=== PATIENT | male | born 1940 | race Caucasian/White ===

== ENCOUNTER → 2017-11-24 13:26 | Outpatient (CLI) | payer MEDICARE, OTHER, SELFPAY ==
[2017-02-24 16:07] VITALS: BMI 22.6
[2017-11-24 15:33] LABS: Anion Gap 7 (5-15); BUN 48 mg/dL (7-18); BUN/Creat Ratio 26.1 RATIO (10-20); Calcium,Total 8.5 mg/dL (8.5-10.1); Chloride 106 mmol/L (98-107); Creatinine, Serum 1.84 mg/dL (0.70-1.30); EST Glomerular Filtration Rate 38 mL/min (>60); Est Glom Filt Rate - Afr Amer 46 mL/min (>60); Glucose 89 mg/dL (74-106); Potassium 5.2 mmol/L (3.5-5.1); Sodium Level 139 mmol/L (136-145)
== END ==
PROVIDERS: Visit Provider Internal Medicine Cardiovascular Disease
DX: I16.1 Hypertensive emergency (principal); I50.9 Heart failure, unspecified; R79.89 Other specified abnormal findings of blood chemistry
CPT/HCPCS: 36415; 80048

== ENCOUNTER → 2017-12-30 11:22 | Outpatient (CLI) | payer MEDICARE, OTHER, SELFPAY ==
[2017-02-24 16:07] VITALS: BMI 22.6
[2017-12-30 12:05] LABS: Anion Gap 9 (5-15); BUN 38 mg/dL (7-18); BUN/Creat Ratio 20.4 RATIO (10-20); Calcium,Total 8.4 mg/dL (8.5-10.1); Chloride 106 mmol/L (98-107); Creatinine, Serum 1.86 mg/dL (0.70-1.30); EST Glomerular Filtration Rate 38 mL/min (>60); Est Glom Filt Rate - Afr Amer 46 mL/min (>60); Glucose 91 mg/dL (74-106); Sodium Level 141 mmol/L (136-145)
== END ==
PROVIDERS: Visit Provider Physician Assistant Medical
DX: I50.22 Chronic systolic (congestive) heart failure (principal); R79.89 Other specified abnormal findings of blood chemistry
CPT/HCPCS: 36415; 80048

== ENCOUNTER → 2018-01-27 10:45 | Outpatient (CLI) | payer MEDICARE, OTHER, SELFPAY ==
[2017-02-24 16:07] VITALS: BMI 22.6
[2018-01-27 11:58] LABS: Anion Gap 7 (5-15); BUN 35 mg/dL (7-18); Calcium,Total 8.3 mg/dL (8.5-10.1); Chloride 108 mmol/L (98-107); Creatinine, Serum 1.59 mg/dL (0.70-1.30); EST Glomerular Filtration Rate 45 mL/min (>60); Est Glom Filt Rate - Afr Amer 55 mL/min (>60); Glucose 93 mg/dL (74-106); Potassium 4.9 mmol/L (3.5-5.1); Sodium Level 141 mmol/L (136-145)
== END ==
PROVIDERS: Physician Assistant Medical; Visit Provider Internal Medicine Cardiovascular Disease
DX: I50.22 Chronic systolic (congestive) heart failure (principal)
CPT/HCPCS: 36415; 80048

== ENCOUNTER → 2018-04-18 10:38 | Outpatient (CLI) | payer MEDICARE, OTHER, SELFPAY ==
[2017-02-24 16:07] VITALS: BMI 22.6
[2018-04-18 11:21] LABS: AST(SGOT) 19 U/L (15-37); Alanine Aminotransfer ALT/SGPT 19 U/L (16-61); Albumin, Serum 3.3 g/dL (3.2-5.0); Alkaline Phosphatase 79 U/L (45-117); Cholesterol 130 mg/dL (200); Globulin 3.6 g/dL (2.2-4.2); High Density Lipoprotein 45 mg/dL; Protein, Total 6.9 g/dL (6.4-8.2); Triglycerides 54 mg/dL; Very Low Density Lipoprotein 11 mg/dL (5-40)
== END ==
PROVIDERS: Visit Provider Physician Assistant Medical
DX: I10 Essential (primary) hypertension (principal); E78.5 Hyperlipidemia, unspecified
CPT/HCPCS: 36415; 80061; 80076

== ENCOUNTER → 2018-07-12 13:27 | Outpatient (CLI) | payer MEDICARE, OTHER, SELFPAY ==
[2017-02-24 16:07] VITALS: BMI 22.6
--- NOTE | 2018-07-12 13:46 | ECHOD_ITS ---
Reason For Study: CAD/ASHD Procedure This was a 2D Doppler, Color Flow transthoracic echocardiogram. The exam was of adequate technical quality. Exam performed in department. Left Ventricle Normal LV size. Mid cavitary false tendon noted. Mild segmental systolic dysfunction (see wall motion). The estimated ejection fraction is 45 %. There is evidence of diastolic dysfunction. Mid- Anterior : Hypokinetic. Mid-Lateral : Hypokinetic. Mid-Posterior: Hypokinetic. Anterior [place] : Hypokinetic. Lateral [place] : Hypokinetic. Right Ventricle Normal RV size. Normal systolic function. Atria The left atrium is mildly enlarged. Normal right atrium. Lipomatous hypertrophy of the atrial septum. No doppler evidence for ASD. Positive agitated saline contrast study for a right to left interatrial shunt c/w a small PFO vs. ASD. Mitral Valve There is no mitral annular calcification. Mild diffuse mitral valve thickening. Mild-Moderate (1- 2+) mitral valve insufficiency. Tricuspid Valve Normal tricuspid valve. Mild tricuspid valve insufficiency. Right ventricular systolic pressure estimated to be 39 mmHg. Aortic Valve Trisinus/trileaflet aortic valve. Mild diffuse aortic valve thickening. Mild diffuse aortic valve calcification. Aortic valve sclerosis / mild aortic valve stenosis. Trivial aortic valve insufficiency. Pulmonic Valve The pulmonic valve is not well visualized. Trivial pulmonic valve insufficiency. Great Vessels Normal sized aortic root. Pericardium/Pleural No pericardial effusion. Medication 22 gauge I.V. with prn adaptor inserted into right arm. Performed a rapid injection of agitated mix of 9 cc saline and 1cc air to assess for atrial septal defect. MMode/2D Measurements & Calculations LVIDd: 4.8 cm IVSd: 1.0 cm LVOT diam: 2.2 cm LVIDs: 3.4 cm LVPWd: 0.97 cm LVOT area: 3.8 cm2 RVDd: 3.5 cm FS: 30.3 % Ao root diam: 3.0 cm LAV(MOD-bp): 63.9 ml LVAd ap4: 43.2 cm2 LA dimension: 3.7 cm LAV(MOD-bp) Indexed: 33.2 ml/m2 EDV(MOD-sp4): 173.9 ml LAV(MOD-sp2): 65.5 ml EDV(sp4-el): 177.2 ml LAV(MOD-sp4): 56.5 ml LVAs ap4: 28.8 cm2 ESV(MOD-sp4): 90.4 ml ESV(sp4-el): 92.2 ml EF(MOD-sp4): 48.0 % EF(sp4-el): 48.0 % SV(MOD-sp4): 83.4 ml SV(sp4-el): 85.0 ml LA A4 area: 21.1 cm2 RA A4 area: 18.6 cm2 Time Measurements MV dec time: 0.26 sec Doppler Measurements & Calculations MV E max arnold: 56.7 cm/sec Lat Peak E' Arnold: 9.8 cm/sec Med Peak E' Arnold: 5.8 cm/sec MV A max arnold: 81.3 cm/sec E/E' lat: 5.8 E/E' med: 9.9 MV E/A: 0.70 Ao V2 max: 192.4 cm/sec AI max arnold: 356.4 cm/sec LV V1 max: 105.3 cm/sec Ao max P.8 mmHg AI max P.8 mmHg LV V1 max P.4 mmHg Ao V2 mean: 138.9 cm/sec AI dec slope: 91.4 cm/sec2 LV V1 mean P.1 mmHg Ao mean P.6 mmHg AI P1/2t: 1142 msec LV V1 mean: 67.1 cm/sec Ao V2 VTI: 60.2 cm LV V1 VTI: 29.5 cm JACKIE(I,D): 1.9 cm2 JACKIE(V,D): 2.1 cm2 SV(LVOT): 112.4 ml PA V2 max: 78.6 cm/sec TR max arnold: 299.8 cm/sec TR max P.0 mmHg Interpretation Summary Mild segmental systolic dysfunction (see wall motion). The estimated ejection fraction is 45 %. Mid cavitary false tendon noted. The left atrium is mildly enlarged. Lipomatous hypertrophy of the atrial septum. Mild diffuse mitral valve thickening. Mild-Moderate (1-2+) mitral valve insufficiency. Mild tricuspid valve insufficiency. Aortic valve sclerosis / mild aortic valve stenosis. Trivial aortic valve insufficiency. Trivial pulmonic valve insufficiency. Right ventricular systolic pressure estimated to be 39 mmHg. There is evidence of diastolic dysfunction. Ordering Physician: Scot Coelho Referring Physician: Scot Coelho Performed By: Silke Caba, RDCS
[2018-07-12 14:45] LABS: Anion Gap 6 (5-15); BUN 33 mg/dL (7-18); BUN/Creat Ratio 23.2 RATIO (10-20); Calcium,Total 8.5 mg/dL (8.5-10.1); Chloride 107 mmol/L (98-107); Creatinine, Serum 1.42 mg/dL (0.70-1.30); EST Glomerular Filtration Rate 51 mL/min (>60); Est Glom Filt Rate - Afr Amer 62 mL/min (>60); Glucose 93 mg/dL (74-106); Potassium 4.9 mmol/L (3.5-5.1); Sodium Level 139 mmol/L (136-145)
== END ==
PROVIDERS: Physician Assistant Medical; Referring Provider Internal Medicine Cardiovascular Disease; Visit Provider Internal Medicine Cardiovascular Disease
DX: I25.10 Atherosclerotic heart disease of native coronary artery without angina pectoris (principal); I25.5 Ischemic cardiomyopathy; I50.22 Chronic systolic (congestive) heart failure; R79.89 Other specified abnormal findings of blood chemistry
CPT/HCPCS: 36415; 80048; 93306; A4216; J2405

== ENCOUNTER → 2019-03-23 11:09 | Outpatient (CLI) | payer MEDICARE, OTHER, SELFPAY ==
[2017-02-24 16:07] VITALS: BMI 22.6
[2018-12-22 16:14] VITALS: BMI 25.2
[2019-03-23 11:55] LABS: AST(SGOT) 19 U/L (15-37); Alanine Aminotransfer ALT/SGPT 17 U/L (16-61); Albumin, Serum 3.6 g/dL (3.2-5.0); Alkaline Phosphatase 73 U/L (45-117); Bilirubin, Direct 0.11 mg/dL (0.00-0.30); Cholesterol 156 mg/dL (200); Globulin 3.3 g/dL (2.2-4.2); High Density Lipoprotein 49 mg/dL; Protein, Total 6.9 g/dL (6.4-8.2); Triglycerides 77 mg/dL; Very Low Density Lipoprotein 15 mg/dL (5-40)
== END ==
PROVIDERS: Referring Provider Internal Medicine Cardiovascular Disease; Visit Provider Internal Medicine Cardiovascular Disease
DX: I25.10 Atherosclerotic heart disease of native coronary artery without angina pectoris (principal); E78.2 Mixed hyperlipidemia
CPT/HCPCS: 36415; 80061; 80076

== ENCOUNTER → 2021-03-17 09:38 | Outpatient (CLI) | payer MEDICARE, OTHER, SELFPAY ==
[2021-02-10 15:31] VITALS: BMI 22.6
[2021-03-10 08:43] VITALS: BMI 25.1
--- NOTE | 2021-03-17 09:55 | CDU_ITS ---
Version 2 Reason For Study: Carotid Bruit Rt. Velocities/BP Lt. Velocities/BP Prox CCA 97/10 cm/sec. Prox CCA 79/23 cm/sec. Mid CCA 118/13 cm/sec. Mid CCA 77/24 cm/sec. Dist CCA 260/32 cm/sec. Dist CCA 77/24 cm/sec. Prox ICA 247/42 cm/sec. Prox ICA 242/69 cm/sec. Mid ICA 221/53 cm/sec. Mid ICA 254/76 cm/sec. Dist ICA 198/42 cm/sec. Dist ICA 109/23 cm/sec. Rt. ICA/CCA = 2.1. Lt. ICA/CCA = 3.3. Prox ECA 252/0 cm/sec. Prox ECA 192/8 cm/sec. Rt. Vert. 54/15 cm/sec. Lt. Vert. 105/7 cm/sec. Right Extracranial There is heterogeneous, irregular atherosclerotic plaque noted in the right common carotid artery. There is heterogeneous, irregular atherosclerotic plaque noted in the right internal carotid artery. There is heterogeneous, irregular atherosclerotic plaque noted in the right external carotid artery. Antegrade flow is noted in the right vertebral artery. Left Extracranial There is heterogeneous, irregular atherosclerotic plaque noted in the left common carotid artery. There is heterogeneous, irregular atherosclerotic plaque noted in the left internal carotid artery. There is heterogeneous, irregular atherosclerotic plaque noted in the left external carotid artery. Antegrade flow is noted in the left vertebral artery. Procedure Carotid Duplex 67643. This is a Carotid Duplex examination using B-mode, color flow and specral Doppler. Prelim given to Rachid Samayoa NP. Exam performed in department. 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 Severe (>70%) steno sis left extracranial internal carotid. Flow within the vertebral arteries is antegrade bilaterally. Ordering Physician: Jennifer Garnica Referring Physician: Jennifer Garnica Performed By: Naheed Samayoa, MARCIAL, RVT
[2021-03-17 11:27] LABS: Hematocrit 33.7 % (40-54); Mean Corp Hgb Conc 32.6 g/dL (32-36); Mean Corpuscular Hgb 32.7 pg (27.0-32.0); Mean Corpuscular Volume 100.3 fL (80-94); Mean Platelet Vol. 11.5 fl (6.2-12.0); Platelet Count 221 K/mm3 (150-450); RBC Distribution Width CV 13.9 % (11.6-14.6); RBC Distribution Width SD 51.7 fl (35.1-43.9); Red Blood Count 3.36 M/mm3 (4.6-6.2); White Blood Count 5.1 K/mm3 (4.4-11.0)
[2021-03-17 11:47] LABS: ALB/GLOB Ratio 1.1 RATIO (0.9-2.4); AST(SGOT) 15 U/L (15-37); Alanine Aminotransfer ALT/SGPT 18 U/L (16-61); Albumin, Serum 3.4 g/dL (3.2-5.0); Alkaline Phosphatase 95 U/L (45-117); Anion Gap 8 (5-15); BUN 26 mg/dL (7-18); BUN/Creat Ratio 21.8 RATIO (10-20); Calcium,Total 8.5 mg/dL (8.5-10.1); Chloride 103 mmol/L (98-107); Cholesterol 135 mg/dL (200); Creatinine, Serum 1.19 mg/dL (0.70-1.30); EST Glomerular Filtration Rate 63 mL/min (>60); Est Glom Filt Rate - Afr Amer 76 mL/min (>60); Globulin 3.2 g/dL (2.2-4.2); Glucose 88 mg/dL (74-106); High Density Lipoprotein 48 mg/dL; Potassium 4.5 mmol/L (3.5-5.1); Protein, Total 6.6 g/dL (6.4-8.2); Sodium Level 138 mmol/L (136-145); Triglycerides 115 mg/dL; Very Low Density Lipoprotein 23 mg/dL (5-40)
== END ==
PROVIDERS: Referring Provider Physician Assistant Medical; Visit Provider Physician Assistant Medical
DX: I16.1 Hypertensive emergency (principal); I25.10 Atherosclerotic heart disease of native coronary artery without angina pectoris; I10 Essential (primary) hypertension; E78.5 Hyperlipidemia, unspecified; I25.5 Ischemic cardiomyopathy; R09.89 Other specified symptoms and signs involving the circulatory and respiratory systems
CPT/HCPCS: 36415; 80053; 80061; 85027; 93880

== ENCOUNTER → 2022-03-10 | Outpatient (CLI) | payer MEDICARE, OTHER, SELFPAY ==
[2021-02-10 15:31] VITALS: BMI 22.6
[2022-03-10 12:06] LABS: AST(SGOT) 18 U/L (15-37); Alanine Aminotransfer ALT/SGPT 22 U/L (16-61); Albumin, Serum 3.6 g/dL (3.2-5.0); Alkaline Phosphatase 72 U/L (45-117); Bilirubin, Direct 0.13 mg/dL (0.00-0.30); Cholesterol 160 mg/dL (200); Globulin 3.4 g/dL (2.2-4.2); High Density Lipoprotein 49 mg/dL; Triglycerides 93 mg/dL; Very Low Density Lipoprotein 19 mg/dL (5-40)
== END | disposition home or self-care (01) ==
PROVIDERS: Visit Provider Internal Medicine Cardiovascular Disease
DX: E78.00 Pure hypercholesterolemia, unspecified (principal); R09.89 Other specified symptoms and signs involving the circulatory and respiratory systems; I10 Essential (primary) hypertension; I25.5 Ischemic cardiomyopathy; I25.10 Atherosclerotic heart disease of native coronary artery without angina pectoris
CPT/HCPCS: 36415; 80061; 80076

== ENCOUNTER → 2022-03-26 | Outpatient (CLI) | payer MEDICARE, OTHER, SELFPAY ==
[2021-02-10 15:31] VITALS: BMI 22.6
--- NOTE | 2022-03-26 13:38 | ECHOD_ITS ---
Reason For Study: MURMUR Procedure This was a 2D Doppler, Color Flow transthoracic echocardiogram. The study was technically difficult. Exam performed in department. Left Ventricle Normal LV size. Mid cavitary false tendon noted. Segmental dysfunction with preserved ejection fraction (see wall motion). The estimated ejection fraction is 55 %. Diastolic function is indeterminate. Infero-Basal: Hypokinetic. Mid-Anterior : Hypokinetic. Anterior [place] : Hypokinetic. Right Ventricle Normal RV size. Normal systolic function. Atria Normal left atrium. Normal right atrium. Lipomatous hypertrophy of the atrial septum. No doppler evidence for ASD. Mitral Valve There is no mitral annular calcification. Normal mitral valve. Mild (1+) mitral valve insufficiency. Tricuspid Valve Normal tricuspid valve. Trivial tricuspid valve insufficiency. Right ventricular systolic pressure estimated to be 30 mmHg. Aortic Valve Trisinus/trileaflet aortic valve. Mild diffuse aortic valve calcification. Aortic valve sclerosis/mild aortic valve stenosis. Trivial aortic valve insufficiency. Pulmonic Valve The pulmonic valve is not well visualized. Great Vessels Normal sized aortic root. Pericardium/Pleural No pericardial effusion. MMode/2D Measurements & Calculations LVIDd: 4.8 cm IVSd: 1.2 cm LVOT diam: 2.2 cm LVIDs: 2.5 cm LVPWd: 1.3 cm LVOT area: 3.7 cm2 RVDd: 4.3 cm FS: 47.8 % Ao root diam: 2.7 cm LAV(MOD-sp4): 61.4 ml LVAd ap4: 34.6 cm2 LVLd ap4: 8.7 cm EDV(MOD-sp4): 114.5 ml EDV(sp4-el): 117.0 ml LVAs ap4: 19.0 cm2 LVLs ap4: 6.9 cm ESV(MOD-sp4): 45.6 ml ESV(sp4-el): 44.3 ml EF(MOD-sp4): 60.2 % EF(sp4-el): 62.1 % SV(MOD-sp4): 68.9 ml SV(sp4-el): 72.7 ml LA A4 area: 20.5 cm2 LA dimension(2D): 3.6 cm RA A4 area: 20.8 cm2 Doppler Measurements & Calculations MV E max arnold: 58.2 cm/sec Lat Peak E' Arnold: 5.9 cm/sec Med Peak E' Arnold: 4.8 cm/sec MV A max arnold: 84.1 cm/sec E/E' lat: 9.8 E/E' med: 12.2 MV E/A: 0.69 Ao V2 max: 248.0 cm/sec AI max arnold: 363.1 cm/sec LV V1 max: 140.1 cm/sec Ao max P.8 mmHg AI max P.9 mmHg LV V1 max P.9 mmHg Ao V2 mean: 189.4 cm/sec LV V1 mean P.5 mmHg Ao mean P.0 mmHg AI dec slope: 153.6 cm/sec2 LV V1 mean: 100.0 cm/sec Ao V2 VTI: 73.9 cm AI P1/2t: 692.5 msec LV V1 VTI: 41.0 cm JACKIE(I,D): 2.1 cm2 JACKIE(V,D): 2.1 cm2 SV(LVOT): 153.1 ml PA V2 max: 93.8 cm/sec TR max arnold: 257.6 cm/sec TR max P.5 mmHg ECHO/Echo Complete Interpretation Summary The study was technically difficult. Segmental dysfunction with preserved ejection fraction (see wall motion). The estimated ejection fraction is 55 %. Mid cavitary false tendon noted. Lipomatous hypertrophy of the atrial septum. Mild (1+) mitral valve insufficiency. Trivial tricuspid valve insufficiency. Aortic valve sclerosis/mild aortic valve stenosis. Trivial aortic valve insufficiency. Right ventricular systolic pressure estimated to be 30 mmHg. Diastolic function is indeterminate. Ordering Physician: Scot Coelho Referring Physician: Scot Coelho Performed By: Yun Spence RCS
== END | disposition home or self-care (01) ==
LOC: CVS 13:37
PROVIDERS: Referring Provider Internal Medicine Cardiovascular Disease; Visit Provider Internal Medicine Cardiovascular Disease
DX: I25.10 Atherosclerotic heart disease of native coronary artery without angina pectoris (principal); R09.89 Other specified symptoms and signs involving the circulatory and respiratory systems; E78.2 Mixed hyperlipidemia; I10 Essential (primary) hypertension; I25.5 Ischemic cardiomyopathy
CPT/HCPCS: 93306

== ENCOUNTER → 2022-06-23 | Outpatient (CLI) | payer MEDICARE, OTHER, SELFPAY ==
[2021-02-10 15:31] VITALS: BMI 22.6
--- NOTE | 2022-06-23 08:58 | CDU_ITS ---
Reason For Study: Carotid stenosis Rt. Velocities/BP Lt. Velocities/BP Prox CCA 96.1/10.2 cm/sec. Prox CCA 60.4/17.7 cm/sec. Mid CCA 96.1/13.9 cm/sec. Mid CCA 70/17.7 cm/sec. Dist CCA 308.1/30.1 cm/sec. Dist CCA 71.8/19.5 cm/sec. Prox ICA 249.9/49.5 cm/sec. Prox ICA 262.8/78.5 cm/sec. Mid ICA 185.2/43 cm/sec. Mid ICA 204.6/55.9 cm/sec. Dist ICA 165.8/39.8 cm/sec. Dist ICA 143.3/42.2 cm/sec. Rt. ICA/CCA = 2.60. Lt. ICA/CCA = 3.75. Prox ECA 201.4 cm/sec. Prox ECA 132.1 cm/sec. Rt. Vert. 41.3/9 cm/sec. Lt. Vert. 72.9/6.9 cm/sec. Right Extracranial There is heterogeneous, irregular atherosclerotic plaque noted in the right common carotid artery. There is heterogeneous, irregular atherosclerotic plaque noted in the right internal carotid artery. There is heterogeneous, irregular atherosclerotic plaque noted in the right external carotid artery. Antegrade flow is noted in the right vertebral artery. Left Extracranial There is heterogeneous, irregular atherosclerotic plaque noted in the left common carotid artery. There is heterogeneous, irregular atherosclerotic plaque noted in the left internal carotid artery. There is heterogeneous, irregular atherosclerotic plaque noted in the left external carotid artery. Antegrade flow is noted in the left vertebral artery. Procedure Carotid Duplex 13222. This is a Carotid Duplex examination using B-mode, color flow and specral Doppler. Exam performed in department. 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 Severe (>70%) steno sis left extracranial internal carotid. Ordering Physician: Hal France Performed By: Karina Bowen RVT
--- NOTE | 2022-06-23 08:58 | AAVD_ITS ---
Reason For Study: Iliac artery stenosis Aorta Measurements Aorta Doppler Measurements Proximal aorta measures2.47 x 2.46cm. in cross- Peak systolic flow velocities within the proximal sectional axis. aorta measure 74.9 cm/sec. Proximal aorta measures2.42cm. in longitudinal Peak systolic flow velocities within the mid aorta axis. measure 74.9 cm/sec. Mid aorta measures1.94 x 1.92cm. in cross- Peak systolic flow velocities within the distal sectional axis. aorta measure 49.1 cm/sec. Mid aorta measures1.95cm. in longitudinal axis. Distal aorta measures1.87 x 1.89cm. in cross- sectional axis. Distal aorta measures1.89cm. in longitudinal axis. Left Iliac Artery Left iliac artery measures 1.12 x 1.10 cm. in the cross-sectional axis. Left iliac artery measures 1.08 cm. in the longitudinal axis. Peak systolic velocity in the left iliac artery measures 350.2 cm/sec. Right Iliac Artery Right iliac artery measures 1.09 x 1.10 cm. in the cross-sectional axis. Right iliac artery measures 1.07 cm. in the longitudinal axis. Peak systolic velocity in the right iliac artery measures 600.9 cm/sec. Procedure Aorta IVC Iliac vasculature or bypass grafts [id number]. Exam performed in department. VL/Abd Aortic/IVC Duplex scan Interpretation Summary No evidence of aneurysm noted. Bilateral severe common iliac artery stenosis. Ordering Physician: Hal France Performed By: Karina Bowen RVT
--- NOTE | 2022-06-23 08:58 | ART_ITS ---
Reason For Study: Atherosclerosis Procedure A bilateral lower extremity continuous wave Doppler with analog waveform analysis and ankle brachial indexes. Left Segmental Pressures Left brachial= 154mmHg. Left posterior tibial artery = 113mmHg. Left dorsalis pedis artery = 108mmHg. The left dorsalis pedis waveforms are biphasic. The left posterior tibial artery waveforms are biphasic. Right Segmental Pressures Right brachial= 142mmHg. Right posterior tibial artery = 65mmHg. Right dorsalis pedis artery = 92mmHg. The right dorsalis pedis waveforms are monophasic. The right posterior tibial artery waveforms are monophasic. Indices The right ankle brachial index by the dorsalis pedis is 0.60. The right ankle brachial index by the posterior tibial artery is 0.42. The left ankle brachial index by the dorsalis pedis is 0.70. The left ankle brachial index by the posterior tibial artery is 0.73. VL/Ankle Brachial Index Interpretation Summary Right lower extremity with moderate occlusive disease at rest with monophasic f low and an EZEKIEL 0.6. Left lower extremity with mild occlusive disease at rest with biphasic flow and an EZEKIEL 0.73. Ordering Physician: Hal France Performed By: Karina Bowen RVT
== END | disposition home or self-care (01) ==
LOC: CVS 08:57
PROVIDERS: Referring Provider Surgery Vascular Surgery; Visit Provider Surgery Vascular Surgery
DX: I10 Essential (primary) hypertension (principal); I70.213 Atherosclerosis of native arteries of extremities with intermittent claudication, bilateral legs; I65.23 Occlusion and stenosis of bilateral carotid arteries
CPT/HCPCS: 93880; 93922; 93978

== ENCOUNTER → 2023-05-25 | Outpatient (CLI) | payer MEDICARE, OTHER, SELFPAY ==
[2021-02-10 15:31] VITALS: BMI 22.6
[2023-05-25 11:46] LABS: AST(SGOT) 15 U/L (15-37); Alanine Aminotransfer ALT/SGPT 19 U/L (16-61); Albumin, Serum 3.4 g/dL (3.2-5.0); Alkaline Phosphatase 77 U/L (45-117); Cholesterol 148 mg/dL (200); Globulin 3.1 g/dL (2.2-4.2); High Density Lipoprotein 53 mg/dL; Protein, Total 6.5 g/dL (6.4-8.2); Triglycerides 103 mg/dL; Very Low Density Lipoprotein 21 mg/dL (5-40)
== END | disposition home or self-care (01) ==
LOC: LAB 10:06
PROVIDERS: Referring Provider Physician Assistant Medical; Visit Provider Physician Assistant Medical
DX: R09.89 Other specified symptoms and signs involving the circulatory and respiratory systems (principal); E78.2 Mixed hyperlipidemia; I10 Essential (primary) hypertension; I25.10 Atherosclerotic heart disease of native coronary artery without angina pectoris
CPT/HCPCS: 80061; 80076

== ENCOUNTER → 2024-02-11 | Outpatient (CLI) | payer MEDICARE, OTHER, SELFPAY ==
[2021-02-10 15:31] VITALS: BMI 22.6
[2024-02-11 10:00] LABS: Absolute Lymphocyte Count 0.82 X10^3/uL (0.83-4.51); Absolute Neutrophil Count 3.6 X10^3/uL (2.0-7.7); Basophil# 0.06 X10^3/uL; Eosinophil# 0.29 X10^3/uL; Hematocrit 29.6 % (40-54); Hemoglobin 9.6 g/dL (13.0-16.5); Lymphocyte # 0.82 X10^3/ul (0.83-4.51); Lymphocyte % 14.1 % (19-41); Mean Corp Hgb Conc 32.4 g/dL (32-36); Mean Corpuscular Hgb 32.9 pg (27.0-32.0); Mean Corpuscular Volume 101.4 fL (80-94); Mean Platelet Vol. 10.6 fl (6.2-12.0); Monocyte# 0.99 X10^3/uL; Monocyte% 17.1 % (0-10); NRBC Flagged by Analyzer 0 % (0-5); Neutrophil # 3.61 X10^3/uL (2.7-7.7); Neutrophil % 62.3 % (47-70); Platelet Count 313 K/mm3 (150-450); RBC Distribution Width CV 14.6 % (11.6-14.6); RBC Distribution Width SD 53.1 fl (35.1-43.9); Red Blood Count 2.92 M/mm3 (4.6-6.2); White Blood Count 5.8 K/mm3 (4.4-11.0)
[2024-02-11 10:43] LABS: ALB/GLOB Ratio 0.7 RATIO (0.9-2.4); AST(SGOT) 21 U/L (15-37); Alanine Aminotransfer ALT/SGPT 22 U/L (16-61); Albumin, Serum 2.6 g/dL (3.2-5.0); Alkaline Phosphatase 90 U/L (45-117); Anion Gap 2 (5-15); BUN 28 mg/dL (7-18); BUN/Creat Ratio 18.5 RATIO (10-20); Bilirubin, Direct 0.15 mg/dL (0.00-0.30); Calcium,Total 8.1 mg/dL (8.5-10.1); Chloride 109 mmol/L (98-107); Cholesterol 130 mg/dL (200); Creatinine, Serum 1.51 mg/dL (0.70-1.30); EST Glomerular Filtration Rate 47 mL/min (>60); Est Glom Filt Rate - Afr Amer 57 mL/min (>60); Globulin 3.9 g/dL (2.2-4.2); Glucose 103 mg/dL (74-106); High Density Lipoprotein 36 mg/dL; Potassium 4.8 mmol/L (3.5-5.1); Protein, Total 6.5 g/dL (6.4-8.2); Sodium Level 137 mmol/L (136-145); Thyroid Stim Hormone (TSH) 3.32 uIU/mL (0.358-3.74); Triglycerides 77 mg/dL; Very Low Density Lipoprotein 15 mg/dL (5-40)
[2024-02-11 11:26] LABS: Color, Urine Yellow (Yellow); Glucose, Dipstick Normal (Normal); Ketone-Dipstick Negative (Negative); Leukocyte Esterase-Dipstick 25 /ul (Negative); Nitrite-Dipstick Negative (Negative); Occult Blood-Urine 10 /ul (Negative); Protein-Dipstick 100 mg/dl (Negative); Specific Gravity, Urine 1.015 (1.002-1.030); Urine Bilirubin Dipstick Negative (Negative); Urine Clarity Clear (Clear); Urine Urobilinogen 1 mg/dl (Normal)
[2024-02-11 11:37] LABS: Bacteria 0 SEEN /hpf (None Seen); Mucous, Urine 0 SEEN /hpf (<or=2+)
[2024-02-11 11:38] LABS: Red Blood Cells-Urine 0-5 SEEN /hpf (0-5); Squamous Epithelial Cells - UA 0-5 SEEN /hpf (0-5); White Blood Cells 0-5 SEEN /hpf (0-5)
== END | disposition home or self-care (01) ==
LOC: LAB 09:09
PROVIDERS: Referring Provider Physician Assistant Medical; Visit Provider Physician Assistant Medical
DX: R53.83 Other fatigue (principal); I25.10 Atherosclerotic heart disease of native coronary artery without angina pectoris; I25.5 Ischemic cardiomyopathy
CPT/HCPCS: 36415; 80053; 80061; 81001; 82248; 84443; 85025; 87086

== ENCOUNTER 2024-02-28 15:27 | Inpatient (IN) | payer MEDICARE, OTHER, SELFPAY ==
[2021-02-10 15:31] VITALS: BMI 22.6
[2024-02-28] VITALS (8 sets, daily range): BP systolic 132–164; BP diastolic 47–109; PULSE 49–82; RESP 16–22; TEMP 36.4–36.8; O2SAT 97–99; BMI 24.1; BMI 23.8
--- NOTE | 2024-02-28 15:49 | EX.ED.DYSGE1 ---
HPI <NAKIA Godoy - Last Filed: 02/28/24 20:49> History of Present Illness Chief Complaint: GI Bleed Narrative Narrative: Patient presenting today due to rectal bleeding that started yesterday. He is brought in by his daughter who reports that he has a history of dementia and is a poor historian. She reports that his sister helps take care of him and noticed yesterday that there was dark red appearing blood with clots in his brief yesterday and this morning, prompting his daughter to bring him in. He has been complaining of abdominal discomfort intermittently over the past few weeks. He did have recent labs performed by his we[employer] wire lo[employer] which showed a slight drop in his hemoglobin and his aspirin was discontinued. He is taking Plavix still. No previous history of GI bleed. He has a PMH of coronary artery disease and dementia. PFSH <ANKIA Godoy - Last Filed: 02/28/24 20:49> [facility] Medical History (Updated 02/28/24 @ 20:49 by NAKIA Godoy) Dementia Cancer Bilateral carotid artery stenosis Bilateral carotid bruits Mixed hyperlipidemia Essential hypertension Central sleep apnea BMI 23.0-23.9, adult PVD (peripheral vascular disease) Cancer of skin of neck Chronic systolic congestive heart failure Ischemic cardiomyopathy Atherosclerotic heart disease of [place] coronary artery without angina pectoris Hypersomnia Cancer of skin of neck Hyperlipidemia Lumbar back pain with radiculopathy affecting right lower extremity Lumbar canal stenosis Non-ST elevation IN (NSTEMI) Elevated serum creatinine Home Medications ?Medication ?Instructions ?Recorded ?Last Taken ?Type amlodipine 2.5 mg tablet 2.5 mg PO .COMPLEX HTN #90 tabs 11/26/23 Unknown Rx atorvastatin 80 mg tablet 80 mg PO QHS CHOLESTEROL #30 tabs 11/26/23 Unknown Rx carvedilol 3.125 mg tablet 3.125 mg PO BID HTL #60 tabs 11/26/23 Unknown Rx clopidogrel 75 mg tablet 75 mg PO DAILY HEART #30 tabs 11/26/23 Unknown Rx sacubitril 97 mg-valsartan 103 mg 1 tab PO BID HTN #60 tabs 11/26/23 Unknown Rx tablet Allergy/AdvReac Type Severity Reaction Status Date / Time No Known Allergies Allergy Verified 02/28/24 15:28 Family History Father CHF (congestive heart failure) Sister CAD (coronary artery disease) Hx of CABG Mother Cancer Social History Smoking Status: Former smoker how long ago did patient quit smokin second hand exposure: No alcohol intake: never substance use type: does not use what type of physical activity do you participate in: none ROS <NAKIA Godoy - Last Filed: 02/28/24 20:49> ROS ED Constitutional Constitutional ED: Denies chills or fever(s) Cardiovascular Cardiovascular: Denies chest pain Respiratory/Chest Respiratory/Chest: Denies dyspnea Gastrointestinal Gastrointestinal: Reports abdominal pain and rectal bleeding; Denies nausea or vomiting Genitourinary Genitourinary ED: Denies dysuria Integumentary Denies rash Neurologic Neurologic: Denies weakness EXAM <NAKIA Godoy - Last Filed: 02/28/24 20:49> Physical Exam Const Vital Signs: 02/28/24 15:28 02/28/24 16:27 02/28/24 17:00 Temperature 97.6 F L Temperature Source Temporal Pulse Rate 59 L 62 59 L Respiratory Rate 18 16 16 Blood Pressure 132/47 H 145/74 H 143/72 H Blood Pressure Mean 75 97 95 Pulse Ox 98 97 97 Oxygen Delivery Method Room Air Room Air 02/28/24 18:00 Temperature Temperature Source Pulse Rate 49 L Respiratory Rate 16 Blood Pressure 160/75 H Blood Pressure Mean 103 Pulse Ox 99 Oxygen Delivery Method Room Air Positive well nourished, well developed and no apparent distress General Appearance ED: well developed HEENT Reports normocephalic and head/scalp atraumatic Mouth ED: Yes moist mucous membranes normal Eyes PERRL and EOMs intact bilaterally Neck full ROM and supple Chest Wall inspection of chest normal Resp normal respiratory effort and clear to auscultation bilaterally Cardio regular rate and regular rhythm GI soft to palpation, non-tender, non-distended and no masses GI Narrative: Rectal exam: Normal sphincter tone, external nonthrombosed hemorrhoids, no blood noted on DANNA Back/Spine normal ROM and normal to inspection Extremity normal to inspection and full ROM Neuro oriented x3, CN's II-XII intact bilaterally, moves all extremities, no focal motor deficits and no sensory deficits noted Sensorium / Orientation: awake and alert Psych mental status grossly normal and thought process normal Skin no rashes or lesions noted and no wounds <Damian Alaniz MD - Last Filed: 02/28/24 22:28> Physical Exam Const Vital Signs: 02/28/24 15:28 02/28/24 16:27 02/28/24 17:00 Temperature 97.6 F L Temperature Source Temporal Pulse Rate 59 L 62 59 L Respiratory Rate 18 16 16 Blood Pressure 132/47 H 145/74 H 143/72 H Blood Pressure Mean 75 97 95 Pulse Ox 98 97 97 Oxygen Delivery Method Room Air Room Air 02/28/24 18:00 Temperature Temperature Source Pulse Rate 49 L Respiratory Rate 16 Blood Pressure 160/75 H Blood Pressure Mean 103 Pulse Ox 99 Oxygen Delivery Method Room Air MDM <NAKIA Godoy - Last Filed: 02/28/24 20:49> MDM MDM Narrative Medical decision making narrative: Patient presenting due to rectal bleeding and intermittent abdominal pain. The rectal bleeding started yesterday, his daughter did bring in his brief which shows a few clots with dark red blood. On DANNA he has external nonthrombosed hemorrhoids, no blood noted. Labs will be obtained to assess for anemia, also given he is complaining of vague intermittent abdominal pain labs will be obtained to rule out leukocytosis, hepatobiliary etiology, and pancreatitis. CBC shows an H&H of 9 and 27.9, this is slightly decreased in comparison to his labs from a few weeks ago. Kidney function appears to be near baseline. CT scan shows diverticulosis, stool burden, and large prostate but otherwise no acute findings. I did speak with Dr. Troncoso who recommends colonoscopy given patient has never had one. He is willing to do this tomorrow, I will speak with the hospitalist who is agreeable with admitting the patient. Patient will be admitted in stable condition and he and daughter are comfortable with this plan. Lab Data Attestation: I reviewed the patient's lab results. Lab results narrative: WBC 3.3, H&H 9 and 27.9, BUN 27, creatinine 1.36, albumin 2.8 Labs: Laboratory Results - last 24 hr 02/28/24 15:58 WBC 3.3 L RBC 2.72 L Hgb 9.0 L Hct 27.9 L MCV 102.6 H MCH 33.1 H MCHC 32.3 RDW Std Deviation 58.4 H RDW Coeff of Baljeet 15.6 H Plt Count 228 MPV 11.0 Immature Gran % (Auto) 0.300 Neut % (Auto) 61.3 Lymph % (Auto) 21.0 [place] % (Auto) 15.3 H Eos % (Auto) 0.6 Baso % (Auto) 1.5 H Absolute Neuts (auto) 2.0 Absolute Lymphs (auto) 0.70 L Nucleated RBC % 0 Sodium 139 Potassium 4.1 Chloride 110 H Carbon Dioxide 23.0 Anion Gap 6 BUN 27 H Creatinine 1.36 H Estim Creat Clear Calc 41.88 Est GFR (MDRD) Af Amer 65 Est GFR (MDRD) Non-Af 53 L BUN/Creatinine Ratio 19.9 Glucose 117 H Calcium 8.3 L Total Bilirubin 0.40 AST 14 L ALT 17 Alkaline Phosphatase 69 Total Protein 5.9 L Albumin 2.8 L Globulin 3.1 Albumin/Globulin Ratio 0.9 Lipase 54 Radiography Diagnostic Testing: Clinical Impression(s) from Imaging Studies Abdomen/Pelvis CT 02/28/24 15:50 IMPRESSION: Colonic diverticulosis without evidence of diverticulitis. Large colonic stool burden as can be seen with constipation. Large prostate Electronically Signed: Joce Duong MD at 17:18 EDT Reading Location ID and State: [facility] / [place] Tel , Service support , <Damian Alaniz MD - Last Filed: 02/28/24 22:28> [facility] Narrative Medical decision making narrative: Patient presenting due to rectal bleeding and intermittent abdominal pain. The rectal bleeding started yesterday, his daughter did bring in his brief which shows a few clots with dark red blood. On DANNA he has external nonthrombosed hemorrhoids, no blood noted. Labs will be obtained to assess for anemia, also given he is complaining of vague intermittent abdominal pain labs will be obtained to rule out leukocytosis, hepatobiliary etiology, and pancreatitis. CBC shows an H&H of 9 and 27.9, this is slightly decreased in comparison to his labs from a few weeks ago. Kidney function appears to be near baseline. CT scan shows diverticulosis, stool burden, and large prostate but otherwise no acute findings. I did speak with Dr. Trnocoso who recommends colonoscopy given patient has never had one. He is willing to do this tomorrow, I will speak with the hospitalist who is agreeable with admitting the patient. Patient will be admitted in stable condition and he and daughter are comfortable with this plan. Dr. Alaniz: I have personally performed a face to face assessment of the patient and have reviewed the ANYI Note. I performed a substantive portion of the visit including all aspects of the following. My young findings include: History is history of Alzheimer's, family found blood clots in undergarment. Patient does take Plavix and aspirin. Exam is afebrile. Vital signs noted. Regular rate and rhythm. Lungs clear to auscultation bilaterally. Abdomen soft nontender with normoactive bowel sounds. Medical Decision Making: Check CT. I reviewed the radiology report of the CT of the abdomen pelvis which shows diverticulosis without diverticulitis. Large colonic stool burden. Patient discussed with gastroenterology, Dr. Troncoso who will perform colonoscopy tomorrow as the patient is mildly anemic with a hemoglobin of 9.0. Discussed with hospitalist. Admit. Other additions or changes: [None] Lab Data Labs: Laboratory Results - last 24 hr 02/28/24 15:58 WBC 3.3 L RBC 2.72 L Hgb 9.0 L Hct 27.9 L MCV 102.6 H MCH 33.1 H MCHC 32.3 RDW Std Deviation 58.4 H RDW Coeff of Baljeet 15.6 H Plt Count 228 MPV 11.0 Immature Gran % (Auto) 0.300 Neut % (Auto) 61.3 Lymph % (Auto) 21.0 [place] % (Auto) 15.3 H Eos % (Auto) 0.6 Baso % (Auto) 1.5 H Absolute Neuts (auto) 2.0 Absolute Lymphs (auto) 0.70 L Nucleated RBC % 0 Sodium 139 Potassium 4.1 Chloride 110 H Carbon Dioxide 23.0 Anion Gap 6 BUN 27 H Creatinine 1.36 H Estim Creat Clear Calc 41.88 Est GFR (MDRD) Af Amer 65 Est GFR (MDRD) Non-Af 53 L BUN/Creatinine Ratio 19.9 Glucose 117 H Calcium 8.3 L Total Bilirubin 0.40 AST 14 L ALT 17 Alkaline Phosphatase 69 Total Protein 5.9 L Albumin 2.8 L Globulin 3.1 Albumin/Globulin Ratio 0.9 Lipase 54 Radiography Diagnostic Testing: Clinical Impression(s) from Imaging Studies Abdomen/Pelvis CT 02/28/24 15:50 IMPRESSION: Colonic diverticulosis without evidence of diverticulitis. Large colonic stool burden as can be seen with constipation. Large prostate Electronically Signed: Joce Duong MD at 17:18 EDT Reading Location ID and State: [address] [place] [address] Tel , Service support , Discharge Plan Dx/Rx/DC Orders Clinical Impression: Acute GI bleeding, Dementia Disposition Disposition: Acute Care Hospital [facility] Discharge Date/Time: 02/28/24 19:40
--- NOTE | 2024-02-28 15:50 | CT_ITS ---
INDICATION: abdominal pain, blood in stool EXAMINATION: CT ABDOMEN AND PELVIS WITH CONTRAST - CT Abdomen And Pelvis W/ Contrast Injection TECHNIQUE: Helically acquired images were obtained of the abdomen and pelvis following IV contrast. A radiation dose optimization technique was used for this scan. IV Contrast dosage and agent: 100 mL Isovue-300 Oral contrast: None. COMPARISON: None. FINDINGS: LOWER CHEST: Mild dependent atelectasis.. No cardiomegaly or pericardial effusion. Moderate Multivessel coronary atherosclerosis. Aortic valvular calcifications are present. LIVER: Homogeneous. No focal mass. GALLBLADDER AND BILIARY TREE: No calcified gallstones. No gallbladder distension or wall edema. No intra- or extrahepatic biliary ductal dilation. PANCREAS: No focal cystic or solid mass. SPLEEN: Normal size without focal cystic or solid mass. ADRENAL GLANDS: No nodules. KIDNEYS AND URETERS: Normal renal size and position. No hydronephrosis. Bilateral renal vascular calcifications are present. Unremarkable ureters. Unremarkable bladder. PERITONEUM: No ascites or free air. No other fluid collection. BOWEL: No acute gastric finding. No small bowel distention or focal wall thickening. Normal appendix. Large colonic stool burden. Colonic diverticulosis without focal inflamed diverticulum to suggest diverticulitis. LYMPH NODES: No enlarged mesenteric or retroperitoneal lymph nodes. VESSELS: Aortic atherosclerosis without ectasia or dissection.. REPRODUCTIVE ORGANS: Large prostate 5.7 cm transverse.. ABDOMINAL WALL: Fat-containing inguinal hernias without inflammation. . BONES: No lytic or blastic abnormality. CT/Abdomen/Pelvis W IV Cont ONLY IMPRESSION: Colonic diverticulosis without evidence of diverticulitis. Large colonic stool burden as can be seen with constipation. Large prostate Electronically Signed: Joce Duong MD at 17:18 EDT ,
[2024-02-28 16:06] LABS: Basophil# 0.05 X10^3/uL; Basophil% 1.5 % (0-1); Eosinophil# 0.02 X10^3/uL; Eosinophils% 0.6 % (0-5); Hematocrit 27.9 % (40-54); Mean Corp Hgb Conc 32.3 g/dL (32-36); Mean Corpuscular Hgb 33.1 pg (27.0-32.0); Mean Corpuscular Volume 102.6 fL (80-94); Monocyte# 0.51 X10^3/uL; Monocyte% 15.3 % (0-10); NRBC Flagged by Analyzer 0 % (0-5); Neutrophil # 2.04 X10^3/uL (2.7-7.7); Neutrophil % 61.3 % (47-70); Platelet Count 228 K/mm3 (150-450); RBC Distribution Width CV 15.6 % (11.6-14.6); RBC Distribution Width SD 58.4 fl (35.1-43.9); Red Blood Count 2.72 M/mm3 (4.6-6.2); White Blood Count 3.3 K/mm3 (4.4-11.0)
[2024-02-28 16:26] LABS: ALB/GLOB Ratio 0.9 RATIO (0.9-2.4); AST(SGOT) 14 U/L (15-37); Alanine Aminotransfer ALT/SGPT 17 U/L (16-61); Albumin, Serum 2.8 g/dL (3.2-5.0); Alkaline Phosphatase 69 U/L (45-117); Anion Gap 6 (5-15); BUN 27 mg/dL (7-18); BUN/Creat Ratio 19.9 RATIO (10-20); Calcium,Total 8.3 mg/dL (8.5-10.1); Chloride 110 mmol/L (98-107); Creatinine, Serum 1.36 mg/dL (0.70-1.30); EST Glomerular Filtration Rate 53 mL/min (>60); Est Glom Filt Rate - Afr Amer 65 mL/min (>60); Estimated Creatinine Clearance 41.88 ml/min; Globulin 3.1 g/dL (2.2-4.2); Glucose 117 mg/dL (74-106); Lipase 54 U/L (13-75); Potassium 4.1 mmol/L (3.5-5.1); Protein, Total 5.9 g/dL (6.4-8.2); Sodium Level 139 mmol/L (136-145)
[2024-02-28] MEDS: 0.9% Normal Saline (1000mL) 1,000 ML 999 ML IV (16:41)
--- NOTE | 2024-02-28 17:58 | PCM.HP.STD ---
HPI - General General Date of Admission: 02/28/24 Date of Service: 02/28/24 Chief Complaint: GI bleed HPI Narrative ANIKA BRUNO, is a 84 M with a PMH as outlined who presents via the ED on 02/28/2024 with a complaint of GI bleed. He was noted to have rectal bleeding that started the day before admission. his daughter noted dark red blood with clots in his briefs the day before admission and on the morning of admission. He had not had any coffee ground emesis. Per daughter, he had been complaining of some abdominal discomfort over a few weeks prior to admission. Review of systems was otherwise negative. He had recently had his aspirin discontinued due to Hb dropping slightly per labs done by his conveyor man recently. He is on plavix. History was mainly taken from patient's daughter due to his confusion from dementia. Vitals in the ED were BP of 143/72, SC of 59, RR of 16 and oxygen sats of 97% on room air. CBC showed Hb of 9 with wbc of 3.3 and platelets of 228. Chemistry showed sodium of 139, potassium of 4.1 and Cr of 1.36. CT of the abdomen and pelvis showed colonic diverticulosis with no evidence of diverticulitis and large colonic stool burden, as well as a large prostate. He is being admitted to be managed for acute lower GI bleed. [facility] Medical History Bilateral carotid artery stenosis Bilateral carotid bruits Mixed hyperlipidemia Essential hypertension Central sleep apnea BMI 23.0-23.9, adult PVD (peripheral vascular disease) Cancer of skin of neck Chronic systolic congestive heart failure Ischemic cardiomyopathy Atherosclerotic heart disease of [place] coronary artery without angina pectoris Hypersomnia Cancer of skin of neck COPD (chronic obstructive pulmonary disease) Hyperlipidemia Lumbar back pain with radiculopathy affecting right lower extremity Lumbar canal stenosis Non-ST elevation [place] (NSTEMI) Elevated serum creatinine Smoking addiction Home Medications ?Medication ?Instructions ?Recorded ?Last Taken ?Type amlodipine 2.5 mg tablet 2.5 mg PO .COMPLEX HTN #90 tabs 11/26/23 Unknown Rx atorvastatin 80 mg tablet 80 mg PO QHS CHOLESTEROL #30 tabs 11/26/23 Unknown Rx carvedilol 3.125 mg tablet 3.125 mg PO BID HTL #60 tabs 11/26/23 Unknown Rx clopidogrel 75 mg tablet 75 mg PO DAILY HEART #30 tabs 11/26/23 Unknown Rx sacubitril 97 mg-valsartan 103 mg 1 tab PO BID HTN #60 tabs 11/26/23 Unknown Rx tablet Allergy/AdvReac Type Severity Reaction Status Date / Time No Known Allergies Allergy Verified 02/28/24 15:28 Family History Father CHF (congestive heart failure) Sister CAD (coronary artery disease) Hx of CABG Mother Cancer Social History Smoking Status: Former smoker how long ago did patient quit smokin second hand exposure: No alcohol intake: never substance use type: does not use what type of physical activity do you participate in: none ROS ROS Narrative ROS mainly gotten from patient's daughter due to dementia Review of Systems ROS Unobtainable: due to encephalopathy Constitutional Constitutional: Reports fatigue and malaise; Denies anorexia, chills, fever(s) or weakness Eyes Eyes: Denies change in vision ENT HEENT: Denies dysphagia or headache(s) Cardiovascular Cardiovascular: Denies chest pain, dyspnea on exertion, lightheadedness, orthopnea, palpitations, paroxysmal nocturnal dyspnea, rapid heart rate or syncope Respiratory/Chest Respiratory/Chest: Denies cough, excessive phlegm production, hemoptysis, productive cough or shortness of breath at rest Gastrointestinal Gastrointestinal: Reports hematochezia; Denies abdominal pain, coffee ground emesis, diarrhea, dyspepsia, hematemesis, loose stools, melena, nausea or vomiting Genitourinary Genitourinary: Denies burning urination or dysuria Neurologic Neurologic: Reports confusion; Denies focal weakness, headache(s), numbness, seizure-like activity, seizures, syncope or tingling Psychiatric Psychiatric: Denies anxiety or depression Endocrine Endocrinology: Denies change in body appearance Vital Signs Vital Signs Vital Signs: 02/28/24 15:28 02/28/24 16:27 02/28/24 17:00 Temperature 97.6 F L Temperature Source Temporal Pulse Rate 59 L 62 59 L Respiratory Rate 18 16 16 Blood Pressure 132/47 H 145/74 H 143/72 H Blood Pressure Mean 75 97 95 Pulse Ox 98 97 97 Oxygen Delivery Method Room Air Room Air Weight Weight: 163 lb 11.2 oz Body Mass Index (BMI) 24.1 Physical Exam Const alert, no apparent distress and average body habitus Constitutional Narrative: confused General Appearance: cooperative Orientation / Consciousness: confused HEENT normocephalic and head/scalp atraumatic HEENT Narrative: dry oral mucosa Mouth: oral and palatal mucosa normal Eyes PERRL, EOMs intact bilaterally and conjunctivae normal Neck no lymphadenopathy and supple Resp normal respiratory effort, no retractions, no use of accessory muscles and clear to auscultation bilaterally Cardio regular rate, regular rhythm, S1 normal heart sound, S2 normal heart sound and no murmurs GI normal to inspection, nondistended, normoactive bowel sounds, soft to palpation, non-tender and non-distended Extremity normal to inspection, full ROM and no clubbing, cyanosis or edema Neuro CN's II-XII intact bilaterally, moves all extremities and no focal motor deficits Neuro Narrative: confused Sensorium / Orientation: awake and alert Motor Exam: strength 5/5 throughout Psych Psych Narrative: flat affect Results Lab / Micro Data 02/28/24 15:58 02/28/24 15:58 Labs: Laboratory Results - last 24 hr 02/28/24 15:58: WBC 3.3 L, RBC 2.72 L, Hgb 9.0 L, Hct 27.9 L, MCV 102.6 H, MCH 33.1 H, MCHC 32.3, RDW Std Deviation 58.4 H, RDW Coeff of Baljeet 15.6 H, Plt Count 228, MPV 11.0, Immature Gran % (Auto) 0.300, Neut % (Auto) 61.3, Lymph % (Auto) 21.0, [place] % (Auto) 15.3 H, Eos % (Auto) 0.6, Baso % (Auto) 1.5 H, Absolute Neuts (auto) 2.0, Absolute Lymphs (auto) 0.70 L, Nucleated RBC % 0, Sodium 139, Potassium 4.1, Chloride 110 H, Carbon Dioxide 23.0, Anion Gap 6, BUN 27 H, Creatinine 1.36 H, Estim Creat Clear Calc 41.88, Est GFR (MDRD) Af Amer 65, Est GFR (MDRD) Non-Af 53 L, BUN/Creatinine Ratio 19.9, Glucose 117 H, Calcium 8.3 L, Total Bilirubin 0.40, AST 14 L, ALT 17, Alkaline Phosphatase 69, Total Protein 5.9 L, Albumin 2.8 L, Globulin 3.1, Albumin/Globulin Ratio 0.9, Lipase 54 Imaging Radiology Impression Abdomen/Pelvis CT 02/28/24 15:50 IMPRESSION: Colonic diverticulosis without evidence of diverticulitis. Large colonic stool burden as can be seen with constipation. Large prostate Electronically Signed: Joce Duong MD at 17:18 EDT , Assessment & Plan Assessment/Plan (1) Lower GI bleed: PLAN: Plan #Acute lower GI bleed Differentials include diverticular bleed versus gastritis or peptic ulcer disease. Cancer is also a possibility as he is never had a colonoscopy before though this is lower on the list of differentials as he has not had any chronic weight loss and does not have a family history of cancer and with bleeding just started yesterday he also has a history of diverticulitis indicating diverticular disease. Admit to [facility]. Hemoglobin is 9. His baseline is around 10-11. Noted to have bright red blood with clots in his briefs by daughter yesterday and today. Patient has never had a colonoscopy. Daughter however states that he has had diverticulitis in the past so his bleeding may be due to diverticular disease. However in light of him never having had a colonoscopy it is imperative that he has a colonoscopy at the very least to assist in the cause of the bleeding. He is also been on aspirin so gastritis is also possible cause. He will therefore also benefit from an EGD. Keep NPO. Hydrate with IV fluids. His aspirin was stopped recently because of slight drop in his hemoglobin. On Plavix. Will hold this IV pantoprazole 40mg bid consult GI #Acute on chronic anemia Hb is 9. baseline hb is ~ 10-11 Will transfuse if hb <7 #Hypertension; on amlodipine and carvedilol #Hyperlipidemia: on statin #HFrEF: on entresto DVT prophylaxis: SCDs Code status: full code CODE STATUS was discussed with patient's daughter who is his POA. She said when patient had her heart attack back in 2015, she discussed his advanced directives with him and patient stated then that he wanted everything done. In light of his dementia which has been worsening, she has not had a discussion with him since then but she thinks that his wishes would not have changed and he was to want to be full code. She therefore wants to respect his wishes and elects for him to be full code. Total [id number] time: 16 minutes. Charges/Coding Visit Charges Inpatient E&M: 57253 Init Hosp L3 Procedures Hospitalists Procedures: 21395 Advncd Care Plan 30 Min
[2024-02-28] MEDS: Bisacodyl 5 MG Tablet 20 MG PO (20:23)
[2024-02-28] MEDS: 0.9% Normal Saline (1000mL) 1,000 ML 125 ML IV (21:08)
[2024-02-28] MEDS: Electrolyte Solution/Peg's 4000 ML PO (21:08)
[2024-02-28] MEDS: Pantoprazole Sodium 40 MG in 0.9% Normal Saline (100mL MB+) 100 ML 330 MG IV (22:46)
[2024-02-28] MEDS: Fleet Enema 133 ML RC (23:43)
[2024-02-29] VITALS (8 sets, daily range): BP systolic 116–191; BP diastolic 47–89; PULSE 55–81; RESP 16–18; TEMP 36.4–36.9; O2SAT 91–98; BMI 23.8
[2024-02-29 05:23] LABS: Absolute Lymphocyte Count 0.99 X10^3/uL (0.83-4.51); Absolute Neutrophil Count 4.7 X10^3/uL (2.0-7.7); Basophil# 0.05 X10^3/uL; Basophil% 0.8 % (0-1); Eosinophil# 0.01 X10^3/uL; Eosinophils% 0.2 % (0-5); Hematocrit 30.6 % (40-54); Hemoglobin 9.8 g/dL (13.0-16.5); Lymphocyte # 0.99 X10^3/ul (0.83-4.51); Lymphocyte % 15.1 % (19-41); Mean Corpuscular Hgb 32.9 pg (27.0-32.0); Mean Corpuscular Volume 102.7 fL (80-94); Monocyte# 0.73 X10^3/uL; Monocyte% 11.2 % (0-10); NRBC Flagged by Analyzer 0 % (0-5); Neutrophil # 4.72 X10^3/uL (2.7-7.7); Neutrophil % 72.1 % (47-70); Platelet Count 248 K/mm3 (150-450); RBC Distribution Width CV 15.6 % (11.6-14.6); RBC Distribution Width SD 59.4 fl (35.1-43.9); Red Blood Count 2.98 M/mm3 (4.6-6.2); White Blood Count 6.5 K/mm3 (4.4-11.0)
[2024-02-29 05:54] LABS: Anion Gap 8 (5-15); BUN 23 mg/dL (7-18); BUN/Creat Ratio 20.4 RATIO (10-20); Calcium,Total 8.2 mg/dL (8.5-10.1); Chloride 112 mmol/L (98-107); Creatinine, Serum 1.13 mg/dL (0.70-1.30); EST Glomerular Filtration Rate 66 mL/min (>60); Est Glom Filt Rate - Afr Amer 80 mL/min (>60); Glucose 102 mg/dL (74-106); Potassium 3.9 mmol/L (3.5-5.1); Sodium Level 138 mmol/L (136-145)
--- NOTE | 2024-02-29 05:55 | EKG12_ITS ---
Test Reason : PREOP Blood Pressure : / mmHG Vent. Rate : 048 BPM Atrial Rate : 048 BPM P-R Int : 190 ms QRS Dur : 102 ms QT Int : 452 ms P-R-T Axes : 072 022 024 degrees QTc Int : 403 ms Sinus bradycardia Septal infarct (cited on or before 13-SEP-2016) Abnormal ECG When compared with ECG of 14-SEP-2016 06:18, Premature ventricular complexes are no longer Present Questionable change in initial forces of Anterior leads Nonspecific T wave abnormality, improved in Inferior leads T wave inversion no longer evident in Anterior leads QT has shortened Confirmed by MARGARITA GALICIA, HARIKA ([id number]), publications editor JUANJO JAMES ([id number]) on 03/06/2024 8:30:52 AM Referred By: Confirmed By:HARIKA AVILA MD
[2024-02-29] MEDS: 0.9% Normal Saline (1000mL) 1,000 ML 125 ML IV (06:27)
--- NOTE | 2024-02-29 08:08 | PCM.PN.HOSP ---
Reason for Visit Reason for Visit: Diagnoses Gastrointestinal hemorrhage, unspecified (02/28/24) Subjective Subjective Patient is an 84-year-old gentleman with history of dementia who was brought to the emergency department after her assisted checked on him found to have blood in his stool. Subsequently transferred to the intensive care unit Objective Data Objective Data Vital Signs: Vital Signs Temp Pulse Resp BP Pulse Ox O2 Del Method 97.6 F L 67 16 164/71 H 95 Room Air 02/29/24 02:47 02/29/24 02:47 02/29/24 02:47 02/29/24 02:47 02/29/24 02:47 02/29/24 02:47 Oxygen Delivery Method Room Air Weight: 73.028 kg Body Mass Index (BMI) 23.8 Intake & Output: Intake and Output for Last 24 Hours 02/27/24 02/28/24 02/29/24 23:59 23:59 23:59 Intake Total 1110 / 1210 1100 / 1100 Balance 1110 / 1210 1100 / 1100 Lab / Micro Data 02/29/24 05:08 02/29/24 05:08 Labs: Laboratory Results - last 24 hr 02/28/24 15:58: WBC 3.3 L, RBC 2.72 L, Hgb 9.0 L, Hct 27.9 L, MCV 102.6 H, MCH 33.1 H, MCHC 32.3, RDW Std Deviation 58.4 H, RDW Coeff of Baljeet 15.6 H, Plt Count 228, MPV 11.0, Immature Gran % (Auto) 0.300, Neut % (Auto) 61.3, Lymph % (Auto) 21.0, [place] % (Auto) 15.3 H, Eos % (Auto) 0.6, Baso % (Auto) 1.5 H, Absolute Neuts (auto) 2.0, Absolute Lymphs (auto) 0.70 L, Nucleated RBC % 0, Sodium 139, Potassium 4.1, Chloride 110 H, Carbon Dioxide 23.0, Anion Gap 6, BUN 27 H, Creatinine 1.36 H, Estim Creat Clear Calc 41.88, Est GFR (MDRD) Af Amer 65, Est GFR (MDRD) Non-Af 53 L, BUN/Creatinine Ratio 19.9, Glucose 117 H, Calcium 8.3 L, Total Bilirubin 0.40, AST 14 L, ALT 17, Alkaline Phosphatase 69, Total Protein 5.9 L, Albumin 2.8 L, Globulin 3.1, Albumin/Globulin Ratio 0.9, Lipase 54, Blood Type A POSITIVE, Antibody Screen NEGATIVE 02/29/24 05:08: WBC 6.5, RBC 2.98 L, Hgb 9.8 L, Hct 30.6 L, MCV 102.7 H, MCH 32.9 H, MCHC 32.0, RDW Std Deviation 59.4 H, RDW Coeff of Baljeet 15.6 H, Plt Count 248, MPV 11.0, Immature Gran % (Auto) 0.600, Neut % (Auto) 72.1 H, Lymph % (Auto) 15.1 L, [place] % (Auto) 11.2 H, Eos % (Auto) 0.2, Baso % (Auto) 0.8, Absolute Neuts (auto) 4.7, Absolute Lymphs (auto) 0.99, Nucleated RBC % 0, Sodium 138, Potassium 3.9, Chloride 112 H, Carbon Dioxide 18.0 L, Anion Gap 8, BUN 23 H, Creatinine 1.13, Estim Creat Clear Calc 50.40, Est GFR (MDRD) Af Amer 80, Est GFR (MDRD) Non-Af 66, BUN/Creatinine Ratio 20.4 H, Glucose 102, Calcium 8.2 L Radiography Diagnostic Testing: Radiology Impression Abdomen/Pelvis CT 02/28/24 15:50 IMPRESSION: Colonic diverticulosis without evidence of diverticulitis. Large colonic stool burden as can be seen with constipation. Large prostate Electronically Signed: Joce Duong MD at 17:18 EDT Reading Location ID and State: [facility] / [place] Tel , Service support , Physical Exam Narrative GENERAL: Patient appears restless HEENT: Atraumatic; normocephalic EYES; Anicteric, Normal Conjunctiva NECK; supple, normal thyroid, RESPIRATORY: Diminished to auscultation CARDIOVASCULAR: Regular S1 S2, GI: soft, normoactive bowel sounds, : No Renal angle tenderness; EXTREMITIES: No edema, no clubbing, MUSCULOSKELETAL: no muscle wasting NEURO: Awake; no lateralizing signs. SKIN: No Rash PSYCH; oriented to self only Assessment & Plan Assessment/Plan (1) Lower GI bleed: PLAN: Plan Patient is an 84-year-old gentleman with history of dementia who was brought to the emergency department after her assisted checked on him found to have blood in his stool. Subsequently transferred to the intensive care unit 1. Acute lower GI bleed ? Suspected to be secondary to diverticular bleed. Imaging studies obtained on admission demonstrate colonic diverticulosis without evidence of diverticulitis.. He was also found to have Large colonic stool burden as can be seen with constipation. Patient admitted to regular nursing floor H&H ordered every 4 hours consultation placed to GI for possible endoscopic evaluation 2. Anemia ? Secondary to acute blood loss anemia monitoring H&H with plans to transfuse if hemoglobin falls below 7 or patient is deemed to be symptomatic 3. Coronary artery disease ? Patient is on guideline directed medical therapy including atorvastatin carvedilol and clopidogrel clopidogrel held given patient GI bleed 4. Dyslipidemia -Patient is on statin therapy, continued at home dose 5. Hypertension - Blood pressure controlled, home medications continued with dose adjustment as needed 6. Chronic congestive heart failure with preserved ejection fraction ? Patient echo from 02/27/2022 demonstrated EF of 55%. Patient is on Entresto 7. Dementia W behavioral agitation patient started on Seroquel 25 mg p.o. twice daily 8. Enlarged prostate ? Patient started on Flomax 9. DVT prophylaxis ? Bilateral SCDs, avoiding chemoprophylaxis given patient presentation Time spent in the patient's overall evaluation,decision-making process, review of diagnostic data, adjustment of management, discussion with other providers, nursing nursing and ancillary staff involved in patient's care documentation, 55 minutes Charges/Coding Visit Charges Inpatient E&M: 10613 [facility] L3
[2024-02-29] MEDS: Carvedilol 3.125 MG TABLET PO ×2 (08:59→21:33)
[2024-02-29] MEDS: QUEtiapine 25 MG Tablet PO ×2 (08:59→21:33)
[2024-02-29] MEDS: amLODIPine 2.5 MG Tablet PO (08:59)
[2024-02-29] MEDS: Tamsulosin HCl 0.4 MG Capsule PO ×2 (09:01→21:33)
[2024-02-29] MEDS: SACUBITRIL/VALSARTAN 97-103 MG TABLET 1 EACH PO ×2 (09:49→21:33)
[2024-02-29] MEDS: Pantoprazole Sodium 40 MG in 0.9% Normal Saline (100mL MB+) 100 ML 330 MG IV ×2 (11:55→21:34)
--- NOTE | 2024-02-29 12:25 | CASEMGMT ---
RN?CM?LEVEL GLASS FORMING MACHINE OPERATOR?CM?to room to meet with patient and daughter for initial transition planning/care coordination?assessment.?RN?CM?introduced self and role at [facility].? Pt resting in bed in no distress at this time and kept eyes closed during assessment. ?Per report, pt has dementia and only oriented x 1. Pt's daughter, Sophie, @ bedside and provided the following information. Care providers, pharmacy, and demographics verified/updated at this time. PCP: Pt has seen Dr Roland in the past, but Sophie states it had been years since he had been in to see him, so he is currently considered a new patient and they were not able to get an appt scheduled w/Dr Roland until April. He is currently on a wait list to see if he can be seen sooner. Sophie states may be interested in finding another PCP that could take him sooner. Local PCP list provided at this time. Specialists: [facility]/cardiology. Preferred Pharmacy: [facility] Retail @ dc only. Otherwise, uses [facility]. Insurance: [facility], [facility] Prescription Benefit:?Yes Living Will/HPOA:? Dtr, Sophie, states she is HCPOA and states she will try an bring in document to be placed on pt's chart. LNOK: One daughter, Sophie/HCPOA Living Arrangements: Pt's sister lives w/him in one-story home w/basement w/3 steps to enter ad Sophie states he does well w/these. Dtr just recently purchased a baby gate to block off access to the basement by pt. Pt was mostly independent w/ADL's, able to bath/dress self, and was even still mowing the lawn up until about 5 weeks ago when he began having significant increase in confusion/orientation. Sophie states he wandered off in the middle of the night on foot in the rain on and police were called to assist w/locating him. Since then, alarms have been placed on the doors in the home to alert pt's sister if he would try and exit. Sophie states she is also planning on calling the police to have tracker placed on pt for safety, as they had discussed this w/her at that time. Pt's sister is w/pt 19/04 and does all IADL's and manages his medications. Sophie is directly involved in pt's care and over-sees sister's involvement and has been monitoring for on-going needs for safety of pt. Transportation:? Sophie/dtr takes pt to all appts. Pt's sister takes him to grocery store and other places. DME: Per Sophie, pt uses no assistive device to ambulate and uses no other DME. She states no need for DME at this time. HHC/SNF: No hx of SNF. Had HHC in the past after SD. Discussed discharge planning/needs/preferences and questions answered. She states he can physically get around well and his balance is good and that the main concern is his dementia. Sophie states she does not anticipate pt's mentation will improve until he is back in his own environment/home. Discussed HHC and [facility]'s homebound requirements. She states pt is not homebound and would not qualify. Discussed Assisted Living. She states is not interested in AL at this time but would accept information. List of Assisted Livings provided w/those that have memory care units listed and also given info on [facility]. Sophie also provided w/[place] info and [facility]. She states would like to look into hiring [facility] and list provided as well. She voices appreciation and further questions answered. Sophie denies having any further discharge planning/needs.? Advised her to ask for?CM?if any further questions/concerns/needs arise.? She voices understanding. PLAN:?Home w/family support. PT/OT evals pending. CM to follow. ? Reena BSN?RN?CM
--- NOTE | 2024-02-29 14:30 | COLBX_PTH ---
PATIENT: ANIKA BRUNO LOC: MS3 U#:[id number] AGE/SX: 84/M ROOM: [facility] RE02/28/[address]: Dr. Quique Cr MD : [id number] BED: 1 DIS: 03/02/2024 SPEC #: [id number] RECD: 03/01/24 07:40 STATUS: CURTIS RERaúl #: [id number] DERICK: 02/29/24 14:[address]: Amauri Troncoso DEPT: SURGICAL PATHOLOGY RECD BY: Jenna Ochoa ENTERED: 03/01/24 10:50 SP TYPE: COLON BX OTHR DR: MD Dr. Dutch Dennis MD Dr. Nana Yaa Koram, MD Tissues: A - Duodenum, NOS B - Ascending colon C - COLON BIOPSY D - Sigmoid colon biopsy E - Sigmoid colon biopsy Procedures: Surgery Specimen Level IV Comments: @ Ordering doctor for SUIV edited from to @ by ADA at 03/01/24 1138 @ Submitting doctor edited from to @ by ADA at 03/01/24 1138 HEADER OPERATION: Colonoscopy with polypectomy, EGD PRE-OP DIAGNOSIS: Lower GI bleed, anemia TISSUE SUBMITTED: A- Duodenal ulcer biopsy, B- Ascending colon polyp, C- Splenic flexure polyp, D- Sigmoid polyp, E- Sigmoid polyp #2 MICROSCOPIC DIAGNOSIS A. Duodenum ulcer, biopsy: Mild non-specific chronic inflammation. B. Ascending colon polyp, biopsy: Fragments of tubular adenoma. C. Colonic polyp at splenic flexure, biopsy: Tubular adenoma. Blood clots. D. Sigmoid colon polyp, biopsy: Tubular adenoma with focal high-grade dysplasia. See comment. E. Sigmoid colon polyp #2, biopsy: Hyperplastic polyp. Blood clots. AM/ 03/02/2024 COMMENT D. High grade dysplasia measures 5.2mm in greatest dimension. No invasion of polyp stalk is identified. The cauterized and inked stalk margin is free of adenomatous change or high-grade dysplasia. Case has been reviewed in consultation with Dr. Kidd who concurs with the above diagnosis. IDC:SJ MICROSCOPIC DESCRIPTION Slides are reviewed. GROSS DESCRIPTION A. Received in fixative is one container labeled with the patient's name and designated Duodenal ulcer. The specimen consists of one irregular fragment of light jin soft tissue that measures 0.4 x 0.3 x 0.1 cm. The specimen is totally submitted in one cassette. B. Received in fixative is one container labeled with the patient's name and designated Ascending colon polyp. The specimen consists of multiple irregular fragments of light jin soft tissue that in aggregate measure 1.0 x 0.3 x 0.1 cm. The specimen is totally submitted in one cassette. C. Received in fixative is one container labeled with the patient's name and designated Splenic flexure polyp. The specimen consists of multiple fragments of hemorrhagic soft tissue measuring in aggregate 5.0 x 3.0 x 0.3cm. The entire specimen is submitted in two cassettes. D. Received in fixative is one container labeled with the patient's name and designated Sigmoid colon . The specimen consists of a jin pink polyp measuring 2.5 x 2.0 x 1.0cm. The presumed base is inked. The polyp is serially sectioned and submitted entirely in two cassettes. E. Received in fixative is one container labeled with the patient's name and designated Sigmoid polyp #2. The specimen consists of multiple irregular fragments of hemorrhagic soft tissue that in aggregate measure 3.0 x 2.5 x 0.3 cm. The specimen is totally submitted in one cassette. Yamilet 03/01/2024 TC:? CPT:64777c5
[2024-02-29] MEDS: 0.9% Saline Lock 10 ML Syringe IV (14:56)
--- NOTE | 2024-02-29 15:16 | NURSING ---
pt daughter at bedside. states that pt has had his days and nights mixed up for about the last 5 weeks and in the last couple days hasn't slept much at home and he has just been declining since then.
--- NOTE | 2024-02-29 17:51 | EX.PCM.CON.G ---
HPI Consult Data Date of Consult: 02/28/24 HPI Narrative Reason for Consultation: GI bleed HPI Narrative: ANIKA BRUNO, is a 84 M with a PMH as outlined who presents via the ED on 02/28/2024 with a complaint of GI bleed. He was noted to have rectal bleeding that started the day before admission. his daughter noted dark red blood with clots in his briefs the day before admission and on the morning of admission. He had not had any coffee ground emesis. Per daughter, he had been complaining of some abdominal discomfort over a few weeks prior to admission. Review of systems was otherwise negative. He had recently had his aspirin discontinued due to Hb dropping slightly per labs done by his digital x ray service engineer recently. He is on plavix. History was mainly taken from patient's daughter due to his confusion from dementia. Vitals in the ED were BP of 143/72, ND of 59, RR of 16 and oxygen sats of 97% on room air. CBC showed Hb of 9 with wbc of 3.3 and platelets of 228. Chemistry showed sodium of 139, potassium of 4.1 and Cr of 1.36. CT of the abdomen and pelvis showed colonic diverticulosis with no evidence of diverticulitis and large colonic stool burden, as well as a large prostate. He is being admitted to be managed for acute lower GI bleed. [facility] Medical History (Updated 02/28/24 @ 20:49 by NAKIA Godoy) Dementia Cancer Bilateral carotid artery stenosis Bilateral carotid bruits Mixed hyperlipidemia Essential hypertension Central sleep apnea BMI 23.0-23.9, adult PVD (peripheral vascular disease) Cancer of skin of neck Chronic systolic congestive heart failure Ischemic cardiomyopathy Atherosclerotic heart disease of [place] coronary artery without angina pectoris Hypersomnia Cancer of skin of neck Hyperlipidemia Lumbar back pain with radiculopathy affecting right lower extremity Lumbar canal stenosis Non-ST elevation ID (NSTEMI) Elevated serum creatinine Home Medications ?Medication ?Instructions ?Recorded ?Last Taken ?Type amlodipine 2.5 mg tablet 2.5 mg PO .COMPLEX HTN #90 tabs 11/26/23 Unknown Rx atorvastatin 80 mg tablet 80 mg PO QHS CHOLESTEROL #30 tabs 11/26/23 Unknown Rx carvedilol 3.125 mg tablet 3.125 mg PO BID HTL #60 tabs 11/26/23 Unknown Rx clopidogrel 75 mg tablet 75 mg PO DAILY HEART #30 tabs 11/26/23 Unknown Rx sacubitril 97 mg-valsartan 103 mg 1 tab PO BID HTN #60 tabs 11/26/23 Unknown Rx tablet Allergy/AdvReac Type Severity Reaction Status Date / Time No Known Allergies Allergy Verified 02/28/24 15:28 Family History Father CHF (congestive heart failure) Sister CAD (coronary artery disease) Hx of CABG Mother Cancer Social History Smoking Status: Former smoker how long ago did patient quit smokin second hand exposure: No alcohol intake: never substance use type: does not use what type of physical activity do you participate in: none ROS ROS Narrative ROS mainly gotten from patient's daughter due to dementia Review of Systems ROS Unobtainable: due to encephalopathy Constitutional Constitutional: Reports fatigue and malaise; Denies anorexia, chills, fever(s) or weakness Eyes Eyes: Denies change in vision ENT HEENT: Denies dysphagia or headache(s) Cardiovascular Cardiovascular: Denies chest pain, dyspnea on exertion, lightheadedness, orthopnea, palpitations, paroxysmal nocturnal dyspnea, rapid heart rate or syncope Respiratory/Chest Respiratory/Chest: Denies cough, excessive phlegm production, hemoptysis, productive cough or shortness of breath at rest Gastrointestinal Gastrointestinal: Reports hematochezia; Denies abdominal pain, coffee ground emesis, diarrhea, dyspepsia, hematemesis, loose stools, melena, nausea or vomiting Genitourinary Genitourinary: Denies burning urination or dysuria Neurologic Neurologic: Reports confusion; Denies focal weakness, headache(s), numbness, seizure-like activity, seizures, syncope or tingling Psychiatric Psychiatric: Denies anxiety or depression Endocrine Endocrinology: Denies change in body appearance Physical Exam Narrative GENERAL: Patient appears restless HEENT: Atraumatic; normocephalic EYES; Anicteric, Normal Conjunctiva NECK; supple, normal thyroid, RESPIRATORY: Diminished to auscultation CARDIOVASCULAR: Regular S1 S2, GI: soft, normoactive bowel sounds, : No Renal angle tenderness; EXTREMITIES: No edema, no clubbing, MUSCULOSKELETAL: no muscle wasting NEURO: Awake; no lateralizing signs. SKIN: No Rash PSYCH; oriented to self only Lab / Micro Data 02/29/24 05:08 02/29/24 05:08 Labs: Laboratory Results - last 24 hr 02/28/24 15:58: Blood Type A POSITIVE, Antibody Screen NEGATIVE 02/29/24 05:08: WBC 6.5, RBC 2.98 L, Hgb 9.8 L, Hct 30.6 L, MCV 102.7 H, MCH 32.9 H, MCHC 32.0, RDW Std Deviation 59.4 H, RDW Coeff of Baljeet 15.6 H, Plt Count 248, MPV 11.0, Immature Gran % (Auto) 0.600, Neut % (Auto) 72.1 H, Lymph % (Auto) 15.1 L, Todd % (Auto) 11.2 H, Eos % (Auto) 0.2, Baso % (Auto) 0.8, Absolute Neuts (auto) 4.7, Absolute Lymphs (auto) 0.99, Nucleated RBC % 0, Sodium 138, Potassium 3.9, Chloride 112 H, Carbon Dioxide 18.0 L, Anion Gap 8, BUN 23 H, Creatinine 1.13, Estim Creat Clear Calc 50.40, Est GFR (MDRD) Af Amer 80, Est GFR (MDRD) Non-Af 66, BUN/Creatinine Ratio 20.4 H, Glucose 102, Calcium 8.2 L Assessment & Plan Assessment/Plan (1) Lower GI bleed: PLAN: Plan 84-year-old with past medical history of CHF, non-ST segment elevation ID status post PTCA with stent on Plavix presents with an acute lower GI bleed Differentials include diverticular bleed versus gastritis or peptic ulcer disease. Cancer is also a possibility as he is never had a colonoscopy before though this is lower on the list of differentials as he has not had any chronic weight loss and does not have a family history of cancer and with bleeding just started yesterday he also has a history of diverticulitis indicating diverticular disease. Admit to [facility]. Hemoglobin is 9. His baseline is around 10-11. Noted to have bright red blood with clots in his briefs by daughter yesterday and today. Patient has never had a colonoscopy. Daughter however states that he has had diverticulitis in the past so his bleeding may be due to diverticular disease. However in light of him never having had a colonoscopy it is imperative that he has a colonoscopy at the very least to assist in the cause of the bleeding. He is also been on aspirin so gastritis is also possible cause. He will therefore also benefit from an EGD. Keep NPO. Hydrate with IV fluids. His aspirin was stopped recently because of slight drop in his hemoglobin. On Plavix. Will hold this IV pantoprazole 40mg bid Hb is 9. baseline hb is ~ 10-11 Will transfuse if hb <7 Charges/Coding Visit Charges Inpatient E&M: 61637 Init Hosp L3
--- NOTE | 2024-02-29 20:08 | OP.CCLET_ITS ---
02/29/2024 Dutch Roland Re : Upper GI endoscopy procedure for Nolberto Caraballor Asuncion This procedure was performed on Thursday, February 29, 2024. My impressions and recommendations are as follows: Impressions : - Normal esophagus. - Small hiatal hernia. - Non-bleeding duodenal ulcer with no stigmata of bleeding. Biopsied. Recommendations : - Return patient to hospital hu for ongoing care. - Resume regular diet. - Continue present medications. - Await pathology results. - Repeat upper endoscopy in 3 months to check healing. My findings are described in the full procedure note, which is enclosed. If I can be of further assistance, please feel free to contact me at . Sincerely, Amauri Troncoso, 02/29/2024 8:08:01 PM This report has been signed electronically.
--- NOTE | 2024-02-29 20:08 | OP.EGD_ITS ---
Patient Name: Nolberto Sanchez Procedure Date: 02/29/2024 4:41 PM Date of : 1940 Age: 84 Procedure: Upper GI endoscopy Indications: Iron deficiency anemia, Hematochezia Providers: Amauri Troncoso DO Medicines: Monitored Anesthesia Care Patient Profile: This is an 84 year old male. Refer to note in patient chart for documentation of history and physical. Patient has symptoms. Complications: No immediate complications. Procedure: Pre-Anesthesia Assessment: - Prior to the procedure, a History and Physical was performed, and patient medications and allergies were reviewed. The patient is competent. The risks and benefits of the procedure and the sedation options and risks were discussed with the patient. All questions were answered and informed consent was obtained. Patient identification and proposed procedure were verified by the physician in the pre-procedure area. Mental Status Examination: alert and oriented. Airway Examination: normal oropharyngeal airway and neck mobility. Respiratory Examination: clear to auscultation. CV Examination: normal. Prophylactic Antibiotics: The patient does not require prophylactic antibiotics. Prior Anticoagulants: The patient has taken no anticoagulant or antiplatelet agents. ASA Grade Assessment: IV - A patient with severe systemic disease that is a constant threat to life. After reviewing the risks and benefits, the patient was deemed in satisfactory condition to undergo the procedure. The anesthesia plan was to use monitored anesthesia care (MAC). Immediately prior to administration of medications, the patient was re-assessed for adequacy to receive sedatives. The heart rate, respiratory rate, oxygen saturations, blood pressure, adequacy of pulmonary ventilation, and response to care were monitored throughout the procedure. The physical status of the patient was re-assessed after the procedure. After obtaining informed consent, the endoscope was passed under direct vision. Throughout the procedure, the patient's blood pressure, pulse, and oxygen saturations were monitored continuously. The Colonoscope was introduced through the mouth, and advanced to the second part of duodenum. The upper GI endoscopy was accomplished without difficulty. The patient tolerated the procedure well. Scope In: 7:28:19 PM Scope Out: 7:31:16 PM Total Procedure Duration Time 0 hours 2 minutes 57 seconds Findings: The examined esophagus was normal. A small hiatal hernia was present. The exam of the stomach was otherwise normal. One non-bleeding linear duodenal ulcer with no stigmata of bleeding was found in the duodenal bulb. The lesion was 3 mm in largest dimension. Biopsies were taken with a cold forceps for histology. Verification of patient identification for the specimen was done. Estimated blood loss was minimal. Impression: - Normal esophagus. - Small hiatal hernia. - Non-bleeding duodenal ulcer with no stigmata of bleeding. Biopsied. Recommendation: - Return patient to hospital hu for ongoing care. - Resume regular diet. - Continue present medications. - Await pathology results. - Repeat upper endoscopy in 3 months to check healing. Procedure Code(s): --- Professional --- 27284, Esophagogastroduodenoscopy, flexible, transoral; with biopsy, single or multiple CPT copyright 2021 [employer]. All rights reserved. The codes documented in this report are preliminary and upon underground repairer review may be revised to meet current compliance requirements. Amauri Troncoso DO 02/29/2024 8:08:01 PM This report has been signed electronically. Number of Addenda: 0 Note Initiated On: 02/29/2024 4:41 PM
--- NOTE | 2024-02-29 20:13 | OP.CCLET_ITS ---
02/29/2024 Dutch Roland Re : Colonoscopy procedure for Nolberto Caraballor Asuncion This procedure was performed on Thursday, February 29, 2024. My impressions and recommendations are as follows: Impressions : - Preparation of the colon was fair. - Hemorrhoids found on perianal exam. - One 6 mm polyp at the recto-sigmoid colon, removed with a hot snare. Resected and retrieved. - One 20 mm polyp in the sigmoid colon, removed using injection-lift and a hot snare. Resected and retrieved. - Two 1 to 2 mm polyps at the splenic flexure and in the ascending colon, removed with a cold snare. Resected and retrieved. - Diverticulosis in the recto-sigmoid colon, in the sigmoid colon and in the descending colon. - Two bleeding colonic angiodysplastic lesions. Treated with a monopolar probe. Recommendations : - Return patient to hospital hu for ongoing care. - Resume regular diet. - Continue present medications. - Await pathology results. - Repeat colonoscopy in 6 months for surveillance. My findings are described in the full procedure note, which is enclosed. If I can be of further assistance, please feel free to contact me at . Sincerely, Amauri Troncoso, 02/29/2024 8:13:16 PM This report has been signed electronically.
--- NOTE | 2024-02-29 20:13 | OP.COLON_ITS ---
Patient Name: Nolberto Sanchez Procedure Date: 02/29/2024 7:31 PM Date of : 1940 Age: 84 Procedure: Colonoscopy Indications: Hematochezia Providers: Amauri Troncoso DO Medicines: Monitored Anesthesia Care Patient Profile: This is an 84 year old male. Refer to note in patient chart for documentation of history and physical. Patient has symptoms. Last Colonoscopy: none. The patient's first colonoscopy is today. Complications: No immediate complications. Procedure: Pre-Anesthesia Assessment: - Prior to the procedure, a History and Physical was performed, and patient medications and allergies were reviewed. The patient is competent. The risks and benefits of the procedure and the sedation options and risks were discussed with the patient. All questions were answered and informed consent was obtained. Patient identification and proposed procedure were verified by the physician in the pre-procedure area. Mental Status Examination: alert and oriented. Airway Examination: normal oropharyngeal airway and neck mobility. Respiratory Examination: clear to auscultation. CV Examination: normal. Prophylactic Antibiotics: The patient does not require prophylactic antibiotics. Prior Anticoagulants: The patient has taken no anticoagulant or antiplatelet agents. ASA Grade Assessment: IV - A patient with severe systemic disease that is a constant threat to life. After reviewing the risks and benefits, the patient was deemed in satisfactory condition to undergo the procedure. The anesthesia plan was to use monitored anesthesia care (MAC). Immediately prior to administration of medications, the patient was re-assessed for adequacy to receive sedatives. The heart rate, respiratory rate, oxygen saturations, blood pressure, adequacy of pulmonary ventilation, and response to care were monitored throughout the procedure. The physical status of the patient was re-assessed after the procedure. After I obtained informed consent, the scope was passed under direct vision. Throughout the procedure, the patient's blood pressure, pulse, and oxygen saturations were monitored continuously. The Colonoscope was introduced through the anus and advanced to the cecum, identified by appendiceal orifice and ileocecal valve. The colonoscopy was performed without difficulty. The patient tolerated the procedure well. The quality of the bowel preparation was fair. The ileocecal valve, appendiceal orifice, and rectum were photographed. Scope In: 7:36:05 PM Scope Withdrawal Time 0 hours 21 minutes 39 seconds Scope Out: 8:00:58 PM Total Procedure Duration Time 0 hours 24 minutes 53 seconds Findings: Hemorrhoids were found on perianal exam. A 6 mm polyp was found in the recto-sigmoid colon. The polyp was sessile. The polyp was removed with a hot snare. Resection and retrieval were complete. Verification of patient identification for the specimen was done. Estimated blood loss was minimal. A 20 mm bleeding polyp was found in the sigmoid colon. The polyp was sessile. The polyp was removed with a saline injection-lift technique using a hot snare. Resection and retrieval were complete. Verification of patient identification for the specimen was done. Estimated blood loss was minimal. Two sessile polyps were found in the splenic flexure and ascending colon. The polyps were 1 to 2 mm in size. These polyps were removed with a cold snare. Resection and retrieval were complete. Verification of patient identification for the specimen was done. Estimated blood loss was minimal. Many small and large-mouthed diverticula were found in the recto-sigmoid colon, sigmoid colon and descending colon. Two medium-sized localized angiodysplastic lesions with bleeding were found at the hepatic flexure. Coagulation for hemostasis using monopolar probe was successful. Estimated blood loss was minimal. Impression: - Preparation of the colon was fair. - Hemorrhoids found on perianal exam. - One 6 mm polyp at the recto-sigmoid colon, removed with a hot snare. Resected and retrieved. - One 20 mm polyp in the sigmoid colon, removed using injection-lift and a hot snare. Resected and retrieved. - Two 1 to 2 mm polyps at the splenic flexure and in the ascending colon, removed with a cold snare. Resected and retrieved. - Diverticulosis in the recto-sigmoid colon, in the sigmoid colon and in the descending colon. - Two bleeding colonic angiodysplastic lesions. Treated with a monopolar probe. Recommendation: - Return patient to hospital hu for ongoing care. - Resume regular diet. - Continue present medications. - Await pathology results. - Repeat colonoscopy in 6 months for surveillance. Procedure Code(s): --- Professional --- 85091, 59, Colonoscopy, flexible; with control of bleeding, any method 29949, Colonoscopy, flexible; with removal of tumor(s), polyp(s), or other lesion(s) by snare technique 34217, 59, Colonoscopy, flexible; with directed submucosal injection(s), any substance CPT copyright 2021 [employer]. All rights reserved. The codes documented in this report are preliminary and upon reference test clerk review may be revised to meet current compliance requirements. Amauri Troncoso DO 02/29/2024 8:13:16 PM This report has been signed electronically. Number of Addenda: 0 Note Initiated On: 02/29/2024 7:31 PM
[2024-02-29] MEDS: Atorvastatin Calcium 80 MG Tablet PO (21:33)
[2024-02-29] MEDS: amLODIPine 5 MG Tablet PO (21:33)
[2024-03-01 05:25] VITALS: O2SAT 88
[2024-03-01 05:30] VITALS: BP 127/68; PULSE 88; RESP 18; TEMP 37.1; O2SAT 94
[2024-03-01 07:16] LABS: Absolute Lymphocyte Count 0.52 X10^3/uL (0.83-4.51); Absolute Neutrophil Count 6.6 X10^3/uL (2.0-7.7); Basophil# 0.03 X10^3/uL; Basophil% 0.4 % (0-1); Hematocrit 23.8 % (40-54); Hemoglobin 7.9 g/dL (13.0-16.5); Lymphocyte # 0.52 X10^3/ul (0.83-4.51); Lymphocyte % 6.6 % (19-41); Mean Corp Hgb Conc 33.2 g/dL (32-36); Mean Corpuscular Hgb 34.1 pg (27.0-32.0); Mean Corpuscular Volume 102.6 fL (80-94); Mean Platelet Vol. 11.1 fl (6.2-12.0); Monocyte# 0.72 X10^3/uL; Monocyte% 9.2 % (0-10); NRBC Flagged by Analyzer 0 % (0-5); Neutrophil # 6.57 X10^3/uL (2.7-7.7); Neutrophil % 83.5 % (47-70); POSITIVE DIFFERENTIAL YES; Platelet Count 197 K/mm3 (150-450); RBC Distribution Width CV 15.8 % (11.6-14.6); RBC Distribution Width SD 58.8 fl (35.1-43.9); Red Blood Count 2.32 M/mm3 (4.6-6.2); White Blood Count 7.9 K/mm3 (4.4-11.0)
--- NOTE | 2024-03-01 07:52 | PCM.PN.HOSP ---
Reason for Visit Reason for Visit: Diagnoses Gastrointestinal hemorrhage, unspecified (02/28/24) Subjective Subjective Patient underwent EGD and colonoscopy findings and results are as below. Patient still has [place] Objective Data Objective Data Vital Signs: Vital Signs Temp Pulse Resp BP Pulse Ox O2 Del Method O2 Flow Rate 98.7 F 88 18 127/68 H 94 Nasal Cannula 2 03/01/24 05:30 03/01/24 05:30 03/01/24 05:30 03/01/24 05:30 03/01/24 05:30 03/01/24 05:43 03/01/24 05:43 Oxygen Flow Rate (L/min) 2 Oxygen Delivery Method Nasal Cannula Weight: 73.028 kg Body Mass Index (BMI) 23.8 Intake & Output: Intake and Output for Last 24 Hours 02/28/24 02/29/24 03/01/24 23:59 23:59 23:59 Intake Total 1110 / 1210 2320.00 / 2320.00 20 / 20 Output Total 825 / 825 Balance 1110 / 1210 2320.00 / 1695.00 -805 / -805 Lab / Micro Data 03/01/24 06:15 02/29/24 05:08 Labs: Laboratory Results - last 24 hr 03/01/24 06:15: WBC 7.9, RBC 2.32 L, Hgb 7.9 L, Hct 23.8 L, MCV 102.6 H, MCH 34.1 H, MCHC 33.2, RDW Std Deviation 58.8 H, RDW Coeff of Baljeet 15.8 H, Plt Count 197, MPV 11.1, Immature Gran % (Auto) 0.300, Neut % (Auto) 83.5 H, Lymph % (Auto) 6.6 L, [place] % (Auto) 9.2, Eos % (Auto) 0.0, Baso % (Auto) 0.4, Absolute Neuts (auto) 6.6, Absolute Lymphs (auto) 0.52 L, Nucleated RBC % 0 Physical Exam Narrative GENERAL: Patient appears restless HEENT: Atraumatic; normocephalic EYES; Anicteric, Normal Conjunctiva NECK; supple, normal thyroid, RESPIRATORY: Diminished to auscultation CARDIOVASCULAR: Regular S1 S2, GI: soft, normoactive bowel sounds, : No Renal angle tenderness; EXTREMITIES: No edema, no clubbing, MUSCULOSKELETAL: no muscle wasting NEURO: Awake; no lateralizing signs. SKIN: No Rash PSYCH; oriented to self only Assessment & Plan Assessment/Plan (1) Lower GI bleed: PLAN: Plan Patient is an 84-year-old gentleman with history of dementia who was brought to the emergency department after her assisted checked on him found to have blood in his stool. Subsequently transferred to the intensive care unit 1. Acute lower GI bleed ? Suspected to be secondary to diverticular bleed. Imaging studies obtained on admission demonstrate colonic diverticulosis without evidence of diverticulitis.. He was also found to have Large colonic stool burden as can be seen with constipation. Patient admitted to regular nursing floor H&H ordered every 4 hours consultation placed to GI for possible endoscopic evaluation 03/01/2024 patient underwent colonoscopy and EGD the day prior -Colonoscopy findings - Hemorrhoids found on perianal exam. - One 6 mm polyp at the recto-sigmoid colon, removed with a hot snare. Resected and retrieved. - One 20 mm polyp in the sigmoid colon, removed using injection-lift and a hot snare. Resected and retrieved. - Two 1 to 2 mm polyps at the splenic flexure and in the ascending colon, removed with a cold snare. Resected and retrieved. - Diverticulosis in the recto-sigmoid colon, in the sigmoid colon and in the descending colon. - Two bleeding colonic angiodysplastic lesions. Treated with a monopolar probe. EGD findings - Normal esophagus. - Small hiatal hernia. - Non-bleeding duodenal ulcer with no stigmata of bleeding. Biopsied. -Patient Protonix changed from IV to p.o. 2. Anemia ? Secondary to acute blood loss anemia monitoring H&H with plans to transfuse if hemoglobin falls below 7 or patient is deemed to be symptomatic ? 03/01/2024; significant drop in hemoglobin level to 7.9. An order was given for patient to be administered with parenteral iron 3. Coronary artery disease ? Patient is on guideline directed medical therapy including atorvastatin carvedilol and clopidogrel clopidogrel held given patient GI bleed 4. Dyslipidemia -Patient is on statin therapy, continued at home dose 5. Hypertension - Blood pressure controlled, home medications continued with dose adjustment as needed 6. Chronic congestive heart failure with preserved ejection fraction ? Patient echo from 02/27/2022 demonstrated EF of 55%. Patient is on Entresto 7. Dementia W behavioral agitation patient started on Seroquel 25 mg p.o. twice daily ? 03/01/2024 patient still has a sitter plan is to discussed with case management regarding disposition 8. Enlarged prostate ? Patient started on Flomax 9. DVT prophylaxis ? Bilateral SCDs, avoiding chemoprophylaxis given patient presentation Time spent in the patient's overall evaluation,decision-making process, review of diagnostic data, adjustment of management, discussion with other providers, nursing nursing and ancillary staff involved in patient's care documentation, 50 minutes Charges/Coding Visit Charges Inpatient E&M: 26629 Subs Hosp L3
[2024-03-01 07:59] VITALS: BP 146/48; PULSE 82; RESP 18; TEMP 37.1; O2SAT 93
[2024-03-01] MEDS: Carvedilol 3.125 MG TABLET PO ×2 (08:04→21:10)
[2024-03-01] MEDS: QUEtiapine 25 MG Tablet PO ×2 (08:04→21:56)
[2024-03-01] MEDS: Pantoprazole Sodium 40 MG Tablet PO (08:04)
[2024-03-01] MEDS: amLODIPine 2.5 MG Tablet PO (08:04)
[2024-03-01] MEDS: SACUBITRIL/VALSARTAN 97-103 MG TABLET 1 EACH PO ×2 (08:05→21:10)
[2024-03-01] MEDS: Sodium Ferric Gluconat 250 MG in 0.9% Normal Saline 250 ML 135 MG IV (09:45)
[2024-03-01] MEDS: 0.9% Saline Lock 10 ML Syringe IV (09:45)
[2024-03-01] MEDS: Iron Polysaccharide Complex 150 MG CAPSULE PO (09:45)
[2024-03-01 09:55] LABS: Anion Gap 8 (5-15); BUN 18 mg/dL (7-18); BUN/Creat Ratio 17.5 RATIO (10-20); Calcium,Total 7.8 mg/dL (8.5-10.1); Chloride 112 mmol/L (98-107); Creatinine, Serum 1.03 mg/dL (0.70-1.30); EST Glomerular Filtration Rate 74 mL/min (>60); Est Glom Filt Rate - Afr Amer 89 mL/min (>60); Estimated Creatinine Clearance 55.29 ml/min; Glucose 103 mg/dL (74-106); Magnesium 1.8 mg/dL (1.6-2.6); Phosphorus 2.7 mg/dL (2.5-4.9); Potassium 3.8 mmol/L (3.5-5.1); Sodium Level 139 mmol/L (136-145)
--- NOTE | 2024-03-01 12:32 | CASEMGMT ---
Addendum entered by Angel Ashby 03/02/24 12:07: 03/01/24: 1200: Daughter brought copy of pt's HCPOA document to [facility] and gave to this RN DELIA. Placed on pt's chart at this time. Original Note: RN CM into pt room to talk with daughter who is at bedside. Daughter states she would like to take pt home today if possible as she feels his confusion will get better at home. Pt sister not comfortable with someone coming into the home yet so they have not reached out to any private duty agencies yet but she/daughter plans to stay with pt and sister to assist until patients mentation improves and sister able to care for him safely. Daughter made aware ST worked with him today and would like to reevaluate him tomorrow unless he wakes up later today and he is more alert they may be able to reevaluate today. Daughter stated her preference is to dc today if possible and medically ready but fine with whatever doctor and ST recommend. Daughter would like to speak with Dr. Cr if he is available, Dr. Cr made aware and said he will be over to see daughter within an hour. Dtr made aware. Dtr states if speech therapy recommends OP ST at DC someone would be available to take him and made aware of local OP centers. Dtr denies having any other DC needs at this time.
[2024-03-01 12:58] VITALS: BP 138/38; PULSE 59; RESP 18; TEMP 36.9; O2SAT 93
[2024-03-01 14:08] VITALS: BP 120/57; PULSE 55; RESP 18; TEMP 36.8; O2SAT 94
--- NOTE | 2024-03-01 14:42 | CASEMGMT ---
Social Work- Pt has a paper copy of directives in his chart. DAYDAY Lomax
[2024-03-01 21:00] VITALS: BP 124/47; PULSE 76; RESP 18; TEMP 36.8; O2SAT 93
[2024-03-01] MEDS: Atorvastatin Calcium 80 MG Tablet PO (21:10)
[2024-03-01] MEDS: amLODIPine 5 MG Tablet PO (21:10)
[2024-03-02] VITALS (7 sets, daily range): BP systolic 110–158; BP diastolic 50–75; PULSE 51–63; RESP 16–18; TEMP 36.5–37.1; O2SAT 91–96
[2024-03-02 07:13] LABS: Absolute Lymphocyte Count 0.89 X10^3/uL (0.83-4.51); Basophil# 0.03 X10^3/uL; Basophil% 0.5 % (0-1); Eosinophil# 0.03 X10^3/uL; Eosinophils% 0.5 % (0-5); Hematocrit 22.9 % (40-54); Hemoglobin 7.2 g/dL (13.0-16.5); Lymphocyte # 0.89 X10^3/ul (0.83-4.51); Lymphocyte % 15.1 % (19-41); Mean Corp Hgb Conc 31.4 g/dL (32-36); Mean Platelet Vol. 11.4 fl (6.2-12.0); Monocyte# 0.89 X10^3/uL; Monocyte% 15.1 % (0-10); NRBC Flagged by Analyzer 0 % (0-5); Neutrophil # 4.02 X10^3/uL (2.7-7.7); Neutrophil % 68.5 % (47-70); Platelet Count 189 K/mm3 (150-450); RBC Distribution Width CV 15.9 % (11.6-14.6); RBC Distribution Width SD 61.1 fl (35.1-43.9); Red Blood Count 2.18 M/mm3 (4.6-6.2); White Blood Count 5.9 K/mm3 (4.4-11.0)
[2024-03-02 08:06] LABS: Anion Gap 8 (5-15); BUN 18 mg/dL (7-18); BUN/Creat Ratio 14.5 RATIO (10-20); Chloride 115 mmol/L (98-107); Creatinine, Serum 1.24 mg/dL (0.70-1.30); EST Glomerular Filtration Rate 59 mL/min (>60); Est Glom Filt Rate - Afr Amer 72 mL/min (>60); Estimated Creatinine Clearance 45.93 ml/min; Glucose 88 mg/dL (74-106); Potassium 3.6 mmol/L (3.5-5.1); Sodium Level 143 mmol/L (136-145)
--- NOTE | 2024-03-02 08:14 | PN.HOSP_ITS ---
Reason for Visit Reason for Visit: Diagnoses Gastrointestinal hemorrhage, unspecified (02/28/24) Subjective Subjective Patient seen scheduled to undergo speech and swallow eval. Patient hemoglobin continues to drop with patient being deemed to be symptomatic an order was given for patient to be transfused with 1 unit PRBC Objective Data Objective Data Vital Signs: Vital Signs Temp Pulse Resp BP Pulse Ox O2 Del Method O2 Flow Rate 98.5 F 55 L 18 145/51 H 92 Room Air 2 03/02/24 06:24 03/02/24 06:24 03/02/24 06:24 03/02/24 06:24 03/02/24 06:24 03/02/24 06:24 03/01/24 05:43 Oxygen Flow Rate (L/min) 2 Oxygen Delivery Method Room Air Weight: 73.028 kg Body Mass Index (BMI) 23.8 Intake & Output: Intake and Output for Last 24 Hours 02/29/24 03/01/24 03/02/24 23:59 23:59 23:59 Intake Total 2320.00 / 2320.00 310 / 310 Output Total 825 / 825 Balance 2320.00 / 1695.00 -515 / -515 Lab / Micro Data 03/02/24 06:05 03/02/24 06:05 Labs: Laboratory Results - last 24 hr 03/01/24 06:15: Sodium 139, Potassium 3.8, Chloride 112 H, Carbon Dioxide 19.0 L , Anion Gap 8, BUN 18, Creatinine 1.03, Estim Creat Clear Calc 55.29, Est GFR (MDRD) Af Amer 89, Est GFR (MDRD) Non-Af 74, BUN/Creatinine Ratio 17.5, Glucose 103, Calcium 7.8 L, Phosphorus 2.7, Magnesium 1.8 03/02/24 06:05: WBC 5.9, RBC 2.18 L, Hgb 7.2 L, Hct 22.9 L, MCV 105.0 H, MCH 33.0 H, MCHC 31.4 L D, RDW Std Deviation 61.1 H, RDW Coeff of Baljeet 15.9 H, Plt Count 189, MPV 11.4, Immature Gran % (Auto) 0.300, Neut % (Auto) 68.5, Lymph % (Auto) 15.1 L, [place] % (Auto) 15.1 H, Eos % (Auto) 0.5, Baso % (Auto) 0.5, Absolute Neuts (auto) 4.0, Absolute Lymphs (auto) 0.89, Nucleated RBC % 0, Sodium 143, Potassium 3.6, Chloride 115 H, Carbon Dioxide 20.0 L, Anion Gap 8, BUN 18, Creatinine 1.24, Estim Creat Clear Calc 45.93, Est GFR (MDRD) Af Amer 72, Est GFR (MDRD) Non-Af 59 L, BUN/Creatinine Ratio 14.5, Glucose 88, Calcium 8.0 L Physical Exam Narrative GENERAL: Patient appears restless HEENT: Atraumatic; normocephalic EYES; Anicteric, Normal Conjunctiva NECK; supple, normal thyroid, RESPIRATORY: Diminished to auscultation CARDIOVASCULAR: Regular S1 S2, GI: soft, normoactive bowel sounds, : No Renal angle tenderness; EXTREMITIES: No edema, no clubbing, MUSCULOSKELETAL: no muscle wasting NEURO: Awake; no lateralizing signs. SKIN: No Rash PSYCH; oriented to self only Assessment & Plan Assessment/Plan (1) Lower GI bleed: PLAN: Plan Patient is an 84-year-old gentleman with history of dementia who was brought to the emergency department after her assisted checked on him found to have blood in his stool. Subsequently transferred to the intensive care unit 1. Acute lower GI bleed ? Suspected to be secondary to diverticular bleed. Imaging studies obtained on admission demonstrate colonic diverticulosis without evidence of diverticulitis.. He was also found to have Large colonic stool burden as can be seen with constipation. Patient admitted to regular nursing floor H&H ordered every 4 hours consultation placed to GI for possible endoscopic evaluation 03/01/2024 patient underwent colonoscopy and EGD the day prior -Colonoscopy findings - Hemorrhoids found on perianal exam. - One 6 mm polyp at the recto-sigmoid colon, removed with a hot snare. Resected and retrieved. - One 20 mm polyp in the sigmoid colon, removed using injection-lift and a hot snare. Resected and retrieved. - Two 1 to 2 mm polyps at the splenic flexure and in the ascending colon, removed with a cold snare. Resected and retrieved. - Diverticulosis in the recto-sigmoid colon, in the sigmoid colon and in the descending colon. - Two bleeding colonic angiodysplastic lesions. Treated with a monopolar probe. EGD findings - Normal esophagus. - Small hiatal hernia. - Non-bleeding duodenal ulcer with no stigmata of bleeding. Biopsied. -Patient Protonix changed from IV to p.o. 2. Anemia ? Secondary to acute blood loss anemia monitoring H&H with plans to transfuse if hemoglobin falls below 7 or patient is deemed to be symptomatic ? 03/01/2024; significant drop in hemoglobin level to 7.9. An order was given for patient to be administered with parenteral iron ? 03/02/2024;Patient hemoglobin continues to drop with patient being deemed to be symptomatic an order was given for patient to be transfused with 1 unit PRBC 3. Coronary artery disease ? Patient is on guideline directed medical therapy including atorvastatin carvedilol and clopidogrel clopidogrel held given patient GI bleed 4. Dyslipidemia -Patient is on statin therapy, continued at home dose 5. Hypertension - Blood pressure controlled, home medications continued with dose adjustment as needed 6. Chronic congestive heart failure with preserved ejection fraction ? Patient echo from 02/27/2022 demonstrated EF of 55%. Patient is on Entresto 7. Dementia W behavioral agitation patient started on Seroquel 25 mg p.o. twice daily ? 03/01/2024 patient still has a sitter plan is to discussed with case management regarding disposition 8. Enlarged prostate ? Patient started on Flomax 9. DVT prophylaxis ? Bilateral SCDs, avoiding chemoprophylaxis given patient presentation Time spent in the patient's overall evaluation,decision-making process, review of diagnostic data, adjustment of management, discussion with other providers, nursing nursing and ancillary staff involved in patient's care documentation, 35 minutes Charges/Coding Visit Charges Inpatient E&M: 68619 [facility] Hosp L2
[2024-03-02] MEDS: Pantoprazole Sodium 40 MG Tablet PO (08:59)
[2024-03-02] MEDS: SACUBITRIL/VALSARTAN 97-103 MG TABLET 1 EACH PO (08:59)
[2024-03-02] MEDS: amLODIPine 2.5 MG Tablet PO (08:59)
[2024-03-02] MEDS: Carvedilol 3.125 MG TABLET PO (08:59)
[2024-03-02] MEDS: Iron Polysaccharide Complex 150 MG CAPSULE PO (08:59)
--- NOTE | 2024-03-02 12:15 | PCM.DC.SUM ---
Providers Date of Admission: 02/28/24 Date of Discharge: 03/02/24 Primary Care Physician: Dr. Dutch Roland MD Consultations 02/28/24 20:18 Consult: Gastroenterology Routine Consulting Provider: [facility] Reason for Consult: Lower GI bleed EMERGENT Consult: No Notified: Yes Date Notified: 02/28/24 Time Notified: 18:20 Method of Notification: Text Reason For Visit: GI BLEED Diagnosis Discharge Diagnosis (1) Lower GI bleed: Status: Acute Code(s): K92.2 - Gastrointestinal hemorrhage, unspecified Plan Patient is an 84-year-old gentleman with history of dementia who was brought to the emergency department after her assisted checked on him found to have blood in his stool. Subsequently transferred to the intensive care unit 1. Acute lower GI bleed ? Suspected to be secondary to diverticular bleed. Imaging studies obtained on admission demonstrate colonic diverticulosis without evidence of diverticulitis.. He was also found to have Large colonic stool burden as can be seen with constipation. Patient admitted to regular nursing floor H&H ordered every 4 hours consultation placed to GI for possible endoscopic evaluation 03/01/2024 patient underwent colonoscopy and EGD the day prior -Colonoscopy findings - Hemorrhoids found on perianal exam. - One 6 mm polyp at the recto-sigmoid colon, removed with a hot snare. Resected and retrieved. - One 20 mm polyp in the sigmoid colon, removed using injection-lift and a hot snare. Resected and retrieved. - Two 1 to 2 mm polyps at the splenic flexure and in the ascending colon, removed with a cold snare. Resected and retrieved. - Diverticulosis in the recto-sigmoid colon, in the sigmoid colon and in the descending colon. - Two bleeding colonic angiodysplastic lesions. Treated with a monopolar probe. EGD findings - Normal esophagus. - Small hiatal hernia. - Non-bleeding duodenal ulcer with no stigmata of bleeding. Biopsied. -Patient Protonix changed from IV to p.o. 2. Anemia ? Secondary to acute blood loss anemia monitoring H&H with plans to transfuse if hemoglobin falls below 7 or patient is deemed to be symptomatic ? 03/01/2024; significant drop in hemoglobin level to 7.9. An order was given for patient to be administered with parenteral iron ? 03/02/2024;Patient hemoglobin continues to drop with patient being deemed to be symptomatic an order was given for patient to be transfused with 1 unit PRBC 3. Coronary artery disease ? Patient is on guideline directed medical therapy including atorvastatin carvedilol and clopidogrel clopidogrel held given patient GI bleed 4. Dyslipidemia -Patient is on statin therapy, continued at home dose 5. Hypertension - Blood pressure controlled, home medications continued with dose adjustment as needed 6. Chronic congestive heart failure with preserved ejection fraction ? Patient echo from 02/27/2022 demonstrated EF of 55%. Patient is on Entresto 7. Dementia W behavioral agitation patient started on Seroquel 25 mg p.o. twice daily ? 03/01/2024 patient still has a sitter plan is to discussed with case management regarding disposition 8. Enlarged prostate ? Patient started on Flomax 9. DVT prophylaxis ? Bilateral SCDs, avoiding chemoprophylaxis given patient presentation Time spent in the patient's overall evaluation,decision-making process, review of diagnostic data, adjustment of management, discussion with other providers, nursing nursing and ancillary staff involved in patient's care documentation, 35 minutes Medications at Discharge Home Medications amlodipine 2.5 mg tablet 2.5 mg PO .COMPLEX HTN #90 tabs 11/26/23 atorvastatin 80 mg tablet 80 mg PO QHS CHOLESTEROL #30 tabs 11/26/23 carvedilol 3.125 mg tablet 3.125 mg PO BID HTL #60 tabs 11/26/23 sacubitril 97 mg-valsartan 103 mg tablet 1 tab PO BID HTN #60 tabs 11/26/23 acetaminophen 325 mg tablet 650 mg (2 x 325 mg) PO Q6H PRN PRN Pain 1-10 Or Fever >100.7 #0 tabs 03/01/24 pantoprazole 40 mg tablet,delayed release 40 mg PO DAILY #60 tabs 03/01/24 polysaccharide iron complex 150 mg iron capsule (Ferrex) 150 mg PO DAILY #60 caps 03/01/24 quetiapine 25 mg tablet 25 mg PO QHS #60 tabs 03/01/24 tamsulosin 0.4 mg capsule 0.4 mg PO DAILY@1730 #60 caps 03/01/24 Physical Exam Narrative GENERAL: Patient in no apparent distress HEENT: Atraumatic; normocephalic EYES; Anicteric, Normal Conjunctiva NECK; supple, normal thyroid, RESPIRATORY: Diminished to auscultation CARDIOVASCULAR: Regular S1 S2, GI: soft, normoactive bowel sounds, : No Renal angle tenderness; EXTREMITIES: No edema, no clubbing, MUSCULOSKELETAL: no muscle wasting NEURO: Awake; no lateralizing signs. SKIN: No Rash PSYCH; oriented to self only Weight / BMI Weight Weight: 73.028 kg Body Mass Index (BMI) 23.8 ABG / Lab / Microbiology Data 03/02/24 06:05 03/02/24 06:05 Laboratory: Laboratory Results - last 24 hr 03/02/24 05:58: Crossmatch See Detail 03/02/24 06:05: WBC 5.9, RBC 2.18 L, Hgb 7.2 L, Hct 22.9 L, MCV 105.0 H, MCH 33.0 H, MCHC 31.4 L D, RDW Std Deviation 61.1 H, RDW Coeff of Baljeet 15.9 H, Plt Count 189, MPV 11.4, Immature Gran % (Auto) 0.300, Neut % (Auto) 68.5, Lymph % (Auto) 15.1 L, [place] % (Auto) 15.1 H, Eos % (Auto) 0.5, Baso % (Auto) 0.5, Absolute Neuts (auto) 4.0, Absolute Lymphs (auto) 0.89, Nucleated RBC % 0, Sodium 143, Potassium 3.6, Chloride 115 H, Carbon Dioxide 20.0 L, Anion Gap 8, BUN 18, Creatinine 1.24, Estim Creat Clear Calc 45.93, Est GFR (MDRD) Af Amer 72, Est GFR (MDRD) Non-Af 59 L, BUN/Creatinine Ratio 14.5, Glucose 88, Calcium 8.0 L D/C Instructions Discharge Diet: Soft diet and Swallowing Precautions Discharge Activity: Return to Normal Activity Call your doctor if you observe: Fever of 101 or Higher, Shortness of breath, Fainting spells and Chest pain Meaningful Use Info Meaningful Use Meaningful Use Diagnoses (Choose all that apply): None applicable Ischemic Stroke Statin Dosing Therapy Reference: STATIN DOSE THERAPY REFERENCE: * Patients > 75 years receive moderate or high dose statin therapy. * Patients 75 years or YOUNGER should receive HIGH intensity statin dose unless contraindicated. You will be required to document reason for non-treatment if statin daily dose does not meet guidelines. HIGH DOSE STATIN THERAPY DAILY Atorvastatin > than or = to 40 mg Rosuvastatin > than or = to 20 mg Amlodipine + Atorvastatin > than or = to 2.5/40 mg Ezetimibe + Simvastatin 10/80 mg Simvastatin 80mg Discharge Plan Admission Admit Date/Time: 02/28/24 18:16 Attending Provider: Quique Cr Primary Care Provider: Dutch Roland Consulting Providers: Sudha Joel Discharge Orders/Prescriptions Prescriptions: New quetiapine 25 mg Tablet 25 mg PO QHS Qty: 60 0RF acetaminophen 325 mg Tablet 650 mg PO Q6H PRN PRN (Reason: Pain 1-10 Or Fever >100.7) Qty: 0 0RF polysaccharide iron complex [Ferrex 150] 150 mg iron Capsule 150 mg PO DAILY Qty: 60 0RF tamsulosin 0.4 mg Capsule 0.4 mg PO DAILY@1730 Qty: 60 0RF pantoprazole 40 mg Tablet,Delayed Release (Dr/Ec) 40 mg PO DAILY Qty: 60 0RF Continued amlodipine 2.5 mg tablet 2.5 mg PO .COMPLEX Qty: 90 11RF Rx Instructions: 2.5 mg PO 2.5 mg in the AM and 5 mg in the PM atorvastatin 80 mg tablet 80 mg PO QHS Qty: 30 11RF Patient Comments: CHOLESTEROL carvedilol 3.125 mg tablet 3.125 mg PO BID Qty: 60 11RF sacubitril-valsartan 97-103 mg tablet 1 tab PO BID Qty: 60 11RF Discontinued clopidogrel 75 mg tablet 75 mg PO DAILY Qty: 30 11RF Patient Comments: BLOOD THINNER Referrals / Follow Up: Dutch Roland MD [Primary Care Provider] - Within 2 Weeks Disposition Disposition (needs filled in before D/C Order can be placed): Home, Self Care Charges/Coding Visit Charges Inpatient E&M: 73489 Disch Hosp >30min
--- NOTE | 2024-03-02 14:13 | CASEMGMT ---
THEODORE LIN NOTE: Discharge order is in. Reviewed ST notes and spoke w/ST, Yumiko. She recommends OP ST. Script obtained from Dr Cr. Pt's dtr, Sophie, here to pick pt up and to take him home. She states she has already picked up his Rx's from the pharmacy. She was made aware of ST recommendations for OP ST and given script and made aware she can take to any OP location of choice. She declined needing assistance w/appt being scheduled. She denies having other discharge needs/concerns. Pt's sister is @ bedside and states his daughter will update her on care needed in the home. Reena MICHAEL RN CM
--- NOTE | 2024-03-02 16:15 | EX.PCM.PN.GI ---
Subjective Subjective Patient is doing well without any complaints. Objective Data Objective Data Vital Signs: Vital Signs Temp Pulse Resp BP Pulse Ox O2 Del Method O2 Flow Rate 98.2 F 54 L 16 126/57 H 96 Room Air 2 03/02/24 13:03 03/02/24 13:03 03/02/24 13:03 03/02/24 13:03 03/02/24 13:03 03/02/24 13:03 03/02/24 08:52 Oxygen Flow Rate (L/min) 2 Oxygen Delivery Method Room Air Weight: 161 lb Body Mass Index (BMI) 23.8 Intake & Output: Intake and Output for Last 24 Hours 02/29/24 03/01/24 03/02/24 23:59 23:59 23:59 Intake Total 2320.00 / 2320.00 310 / 310 Output Total 825 / 825 Balance 2320.00 / 1695.00 -515 / -515 Lab / Micro Data 03/02/24 06:05 03/02/24 06:05 Labs: Laboratory Results - last 24 hr 03/02/24 05:58: Crossmatch See Detail 03/02/24 06:05: WBC 5.9, RBC 2.18 L, Hgb 7.2 L, Hct 22.9 L, MCV 105.0 H, MCH 33.0 H, MCHC 31.4 L D, RDW Std Deviation 61.1 H, RDW Coeff of Baljeet 15.9 H, Plt Count 189, MPV 11.4, Immature Gran % (Auto) 0.300, Neut % (Auto) 68.5, Lymph % (Auto) 15.1 L, [place] % (Auto) 15.1 H, Eos % (Auto) 0.5, Baso % (Auto) 0.5, Absolute Neuts (auto) 4.0, Absolute Lymphs (auto) 0.89, Nucleated RBC % 0, Sodium 143, Potassium 3.6, Chloride 115 H, Carbon Dioxide 20.0 L, Anion Gap 8, BUN 18, Creatinine 1.24, Estim Creat Clear Calc 45.93, Est GFR (MDRD) Af Amer 72, Est GFR (MDRD) Non-Af 59 L, BUN/Creatinine Ratio 14.5, Glucose 88, Calcium 8.0 L Physical Exam Narrative GENERAL: Patient in no apparent distress HEENT: Atraumatic; normocephalic EYES; Anicteric, Normal Conjunctiva NECK; supple, normal thyroid, RESPIRATORY: Diminished to auscultation CARDIOVASCULAR: Regular S1 S2, GI: soft, normoactive bowel sounds, : No Renal angle tenderness; EXTREMITIES: No edema, no clubbing, MUSCULOSKELETAL: no muscle wasting NEURO: Awake; no lateralizing signs. SKIN: No Rash PSYCH; oriented to self only Assessment & Plan Assessment/Plan (1) Lower GI bleed: PLAN: Plan Patient is an 84-year-old gentleman with history of dementia who was brought to the emergency department after her assisted checked on him found to have blood in his stool. Subsequently transferred to the intensive care unit Acute lower GI bleed ? Suspected to be secondary to diverticular bleed. Imaging studies obtained on admission demonstrate colonic diverticulosis without evidence of diverticulitis.. He was also found to have Large colonic stool burden as can be seen with constipation. Patient admitted to regular nursing floor H&H ordered every 4 hours 03/02/2024 patient underwent colonoscopy and EGD the day prior -Colonoscopy findings - Hemorrhoids found on perianal exam. - One 6 mm polyp at the recto-sigmoid colon, removed with a hot snare. Resected and retrieved. - One 20 mm polyp in the sigmoid colon, removed using injection-lift and a hot snare. Resected and retrieved. - Two 1 to 2 mm polyps at the splenic flexure and in the ascending colon, removed with a cold snare. Resected and retrieved. - Diverticulosis in the recto-sigmoid colon, in the sigmoid colon and in the descending colon. - Two bleeding colonic angiodysplastic lesions. Treated with a monopolar probe. EGD findings - Normal esophagus. - Small hiatal hernia. - Non-bleeding duodenal ulcer with no stigmata of bleeding. Biopsied. -Patient Protonix changed from IV to p.o. Anemia ? Secondary to acute blood loss anemia monitoring H&H with plans to transfuse if hemoglobin falls below 7 or patient is deemed to be symptomatic ? 03/01/2024; significant drop in hemoglobin level to 7.9. An order was given for patient to be administered with parenteral iron
== END 2024-03-02 14:22 | disposition home or self-care (01) | DRG 378 ==
LOC: ED 17:01 → MS3 18:25
PROVIDERS: Internal Medicine Gastroenterology; Physician Assistant; Admitting Provider Student in an Organized Health Care Education/Training Program; Emergency Provider Emergency Medicine; PCP Family Medicine; Visit Provider Internal Medicine
PROC: 0DJD8ZZ Inspection of Lower Intestinal Tract, Via Natural or Artificial Opening Endoscopic (ICD-10-PCS; CPT 45378; principal; 2024-02-29 14:25)
DX: K57.31 Diverticulosis of large intestine without perforation or abscess with bleeding (principal); D62 Acute posthemorrhagic anemia; I50.32 Chronic diastolic (congestive) heart failure; K55.21 Angiodysplasia of colon with hemorrhage; F02.80 Dementia in other diseases classified elsewhere, unspecified severity, without behavioral disturbance, psychotic disturbance, mood disturbance, and anxiety; I11.0 Hypertensive heart disease with heart failure; J44.9 Chronic obstructive pulmonary disease, unspecified; G30.9 Alzheimer's disease, unspecified; D50.9 Iron deficiency anemia, unspecified; K62.5 Hemorrhage of anus and rectum; I25.5 Ischemic cardiomyopathy; K64.4 Residual hemorrhoidal skin tags; E78.2 Mixed hyperlipidemia; I25.10 Atherosclerotic heart disease of native coronary artery without angina pectoris; K63.5 Polyp of colon; K44.9 Diaphragmatic hernia without obstruction or gangrene; K26.9 Duodenal ulcer, unspecified as acute or chronic, without hemorrhage or perforation; Z87.891 Personal history of nicotine dependence; Z95.5 Presence of coronary angioplasty implant and graft; R97.20 Elevated prostate specific antigen [PSA]
CPT/HCPCS: 36415; 74177; 80048; 80053; 83690; 83735; 84100; 85025; 86850; 86900; 86901; 86920; 88305; 92526; 92610; 93005; 99281; 99283; J7030; J7050; J7120; P9016; Q9967; A4216; J2916

== ENCOUNTER → 2024-03-09 | Outpatient (CLI) | payer MEDICARE, OTHER, SELFPAY ==
[2021-02-10 15:31] VITALS: BMI 22.6
[2024-03-09 14:36] LABS: Basophil# 0.04 X10^3/uL; Basophil% 0.7 % (0-1); Eosinophil# 0.08 X10^3/uL; Eosinophils% 1.4 % (0-5); Hematocrit 29.3 % (40-54); Hemoglobin 9.2 g/dL (13.0-16.5); Lymphocyte % 12.2 % (19-41); Mean Corp Hgb Conc 31.4 g/dL (32-36); Mean Corpuscular Hgb 32.7 pg (27.0-32.0); Mean Corpuscular Volume 104.3 fL (80-94); Mean Platelet Vol. 11.4 fl (6.2-12.0); Monocyte# 0.89 X10^3/uL; Monocyte% 15.5 % (0-10); NRBC Flagged by Analyzer 0 % (0-5); Neutrophil # 3.99 X10^3/uL (2.7-7.7); Neutrophil % 69.7 % (47-70); Platelet Count 253 K/mm3 (150-450); RBC Distribution Width CV 15.9 % (11.6-14.6); RBC Distribution Width SD 60.6 fl (35.1-43.9); Red Blood Count 2.81 M/mm3 (4.6-6.2); White Blood Count 5.7 K/mm3 (4.4-11.0)
== END | disposition home or self-care (01) ==
LOC: LAB 13:21
PROVIDERS: PCP Family Medicine; Referring Provider Internal Medicine Gastroenterology; Visit Provider Internal Medicine Gastroenterology
DX: K92.2 Gastrointestinal hemorrhage, unspecified (principal)
CPT/HCPCS: 36415; 85025

== ENCOUNTER → 2024-04-19 | Outpatient (CLI) | payer MEDICARE, OTHER, SELFPAY ==
[2021-02-10 15:31] VITALS: BMI 22.6
--- NOTE | 2024-04-19 09:39 | CDU_ITS ---
Reason For Study: bruit Rt. Velocities/BP Lt. Velocities/BP Prox CCA 78.7/7 cm/sec. Prox CCA 63.3/13.8 cm/sec. Mid CCA 83.4/9.7 cm/sec. Mid CCA 61.1/18.2 cm/sec. Dist CCA 229.0/13.8 cm/sec. Dist CCA 68.8/12.7 cm/sec. Prox ICA 249.6/31.9 cm/sec. Prox ICA 276.7/60.1 cm/sec. Mid ICA 177.0/29.3 cm/sec. Mid ICA 170.0/40.7 cm/sec. Dist ICA 166.7/34.5 cm/sec. Dist ICA 114.3/19.4 cm/sec. Rt. ICA/CCA = 2.99. Lt. ICA/CCA = 4.5. Prox ECA 150.3 cm/sec. Prox ECA 60.0/5.1 cm/sec. Rt. Vert. 80.6 cm/sec. Lt. Vert. 47.6 cm/sec. Right Extracranial The atherosclerotic plaque causes acoustic shadowing. There is heterogeneous, irregular atherosclerotic plaque noted in the right common carotid artery. There is heterogeneous, irregular atherosclerotic plaque noted in the right internal carotid artery. There is heterogeneous, irregular atherosclerotic plaque noted in the right external carotid artery. Antegrade flow is noted in the right vertebral artery. Left Extracranial There is heterogeneous, irregular atherosclerotic plaque noted in the left common carotid artery. There is heterogeneous, irregular atherosclerotic plaque noted in the left internal carotid artery. There is heterogeneous, irregular atherosclerotic plaque noted in the left external carotid artery. Antegrade flow is noted in the left vertebral artery. Procedure Carotid Duplex [id number]. This is a Carotid Duplex examination using B-mode, color flow and specral Doppler. The exam was diagnostic. See previous exam 06/23/22. 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 Severe (>70%) stenosis left extracranial internal carotid. Patent and antegrade vertebrals bilaterally. Ordering Physician: Jennifer Garnica Referring Physician: Jennifer Garnica Performed By: Noreen Rosenberg RVT
--- NOTE | 2024-04-19 09:39 | ECHOD_ITS ---
Version 2 Reason For Study: DYSPNEA Procedure This was a 2D Doppler, Color Flow transthoracic echocardiogram. Exam performed in department. Left Ventricle Normal LV size. Left ventricular systolic function is normal. The left ventricular ejection fraction is 60 %. No regional wall motion abnormalities noted. Right Ventricle Normal RV size. Normal systolic function. Atria Normal left atrium. Normal right atrium. Mitral Valve Normal mitral valve. Mild (1+) eccentric mitral valve insufficiency. Tricuspid Valve Normal tricuspid valve. Mild (1+) tricuspid valve insufficiency. Pulmonary artery systolic pressure is 32 mmHg. Aortic Valve Trisinus/trileaflet aortic valve. Mild focal aortic valve calcification. Peak aortic valve gradient 17 mmHg. Mean aortic valve gradient 10 mmHg. Mild (1+) aortic valve insufficiency. Pulmonic Valve Normal pulmonic valve. Great Vessels Normal aortic root. The pulmonary artery is normal size. Normal inferior vena cava. Pericardium/Pleural No pericardial effusion. MMode/2D Measurements & Calculations LVIDd: 4.6 cm IVSd: 1.2 cm LVOT diam: 2.2 cm LVIDs: 2.8 cm LVPWd: 1.2 cm LVOT area: 3.8 cm2 RVDd: 4.1 cm FS: 38.4 % Ao root diam: 3.1 cm LAV(MOD-bp): 59.5 ml LVAd ap4: 28.9 cm2 LAV(MOD-bp) Indexed: 31.3 ml/m2 LVLd ap4: 8.1 cm LAV(MOD-sp2): 55.4 ml EDV(MOD-sp4): 84.1 ml LAV(MOD-sp4): 60.9 ml EDV(sp4-el): 87.8 ml LVAs ap4: 16.1 cm2 LVLs ap4: 6.7 cm ESV(MOD-sp4): 32.3 ml ESV(sp4-el): 33.0 ml EF(MOD-sp4): 61.7 % EF(sp4-el): 62.4 % LVAd ap2: 26.0 cm2 SV(MOD-sp4): 51.9 ml SV(MOD-sp2): 40.0 ml LVLd ap2: 8.2 cm EDV(MOD-sp2): 68.2 ml EDV(sp2-el): 69.8 ml LVAs ap2: 15.3 cm2 LVLs ap2: 7.0 cm ESV(MOD-sp2): 28.2 ml ESV(sp2-el): 28.5 ml EF(MOD-sp2): 58.6 % SV(sp4-el): 54.8 ml LA dimension(2D): 3.9 cm LA A4 area: 20.1 cm2 RA A4 area: 16.8 cm2 TAPSE: 1.8 cm Time Measurements MV dec time: 0.24 sec Doppler Measurements & Calculations MV E max arnold: 53.0 cm/sec Lat Peak E' Arnold: 5.9 cm/sec Med Peak E' Arnold: 5.6 cm/sec MV A max arnold: 62.6 cm/sec E/E' lat: 9.0 E/E' med: 9.4 MV E/A: 0.85 Ao V2 max: 209.6 cm/sec AI max arnold: 331.6 cm/sec MV dec slope: 216.3 cm/sec2 Ao max P.6 mmHg AI max P.0 mmHg Ao V2 mean: 151.8 cm/sec Ao mean P.0 mmHg AI dec slope: 167.4 cm/sec2 Ao V2 VTI: 55.5 cm AI P1/2t: 580.2 msec AV (velocity ratio): 0.42 JACKIE(I,D): 1.6 cm2 JACKIE(V,D): 1.5 cm2 LV V1 max: 83.7 cm/sec SV(LVOT): 88.6 ml PA V2 max: 72.3 cm/sec LV V1 max P.8 mmHg PA max PG (full): 1.1 mmHg LV V1 mean P.5 mmHg LV V1 mean: 56.9 cm/sec LV V1 VTI: 23.2 cm TR max arnold: 266.3 cm/sec TR max P.4 mmHg ECHO/Echo Complete Interpretation Summary Normal LV size. Left ventricular systolic function is normal. The left ventricular ejection fraction is 60 %. Mild (1+) eccentric mitral valve insufficiency. Mild focal aortic valve calcification. Mean aortic valve gradient 10 mmHg. Ordering Physician: Jennifer Garnica Referring Physician: Jennifer Garnica Performed By: Lesly Reinoso RDCS
== END | disposition home or self-care (01) ==
PROVIDERS: PCP Family Medicine; Referring Provider Physician Assistant Medical; Visit Provider Physician Assistant Medical
DX: R09.89 Other specified symptoms and signs involving the circulatory and respiratory systems (principal); I25.5 Ischemic cardiomyopathy; I25.10 Atherosclerotic heart disease of native coronary artery without angina pectoris; R53.83 Other fatigue
CPT/HCPCS: 93306; 93880